=== PATIENT | female | born 1950 | race Caucasian/White ===

== ENCOUNTER 2018-10-20 08:43 | Inpatient (IN) | payer MEDICARE, BC ==
[2018-10-17 11:26] LABS: BASOPHILS # (AUTO) 0.1 (0.0-0.1); BASOPHILS % 0.8 % (0.0-1.0); EOSINOPHILS # (AUTO) 0.2 (0.0-0.4); EOSINOPHILS % 3.4 % (0.0-6.0); HEMATOCRIT 39.9 % (34.2-44.1); HEMOGLOBIN 13.5 g/dL (12.0-16.0); LYMPHOCYTES # (AUTO) 1.2 (1.0-3.2); MEAN CORPUSCULAR HEMOGLOBIN 32.1 pg (28-32); MEAN CORPUSCULAR HGB CONC 33.8 g/dL (31-35); MEAN CORPUSCULAR VOLUME 94.8 fL (81-99); MONOCYTES # (AUTO) 0.7 (0.2-0.8); MONOCYTES % 9.2 % (4.4-11.3); NEUTROPHILS % 69.2 % (38.7-80.0); PLATELET COUNT 254 x10e3/uL (140-360); RED BLOOD COUNT 4.21 x10e6/uL (3.6-5.1)
--- NOTE | 2018-10-17 11:33 | Diagnostic Imaging Report ---
EXAMINATION: PA and lateral views of the chest. COMPARISON: None CLINICAL HISTORY: Preoperative evaluation, gastric surgery DISCUSSION: Lines/tubes: None. Lungs: The lungs are well inflated and clear. No pneumonia or pulmonary edema. Pleura: No pleural effusion or pneumothorax. Heart and mediastinum: The cardiomediastinal silhouette is normal. Bones and soft tissues: No acute bony abnormalities. IMPRESSION: No acute cardiopulmonary abnormalities. Signed by: Dr. Bao Goetz M.D. on 10/17/2018 11:30 AM
[~2018-10-20] VITALS: Ht 160 cm; Wt 120.7 kg
[~2018-10-20 08:43] MED LIST: ACETAMINOPHEN PO; AMLODIPINE-BEN1 EAC3; ATORVASTATIN CA10 MG PO; BENADRYL PO; BUPIVACAINE 0.25% 30ML SDV INJ ONE; CINNAMON PO; FISH-FLAX-BORA1 EACH; HYDROGEN PEROXIDE 120 ML BTL ONE; LEVOTHYROXINE25 MCG; TYLENOL COLD & FLU PO; TYLENOL PO; VITAMIN D31000 UNI1 PO
--- OUTSIDE RECORDS SUMMARY | 2018-10-20 08:46 | XMS REPORT | Summary of Care ---
Author Author [facility] Organization [facility] Address Unknown Phone Unavailable Encounter HQ Marialuisa(OLEKSANDR) [id number] Date(s): 04/02/17 - 04/02/17 [facility] [address] [place] [address]- [phone] Discharge Disposition: Home or Self Care Attending Physician: Chica Arias MD Referring Physician: Chica Arias MD Vital Signs 1 2 3 Most recent to oldest [Reference Range]: 160.02 cm (03/29/17 1:59 PM) Height 98.4 DegF (03/29/17 2:04 PM) Temperature Oral [96.4-99.1 DegF] 146/64 mmHg *HI* (04/02/17 1:00 PM) 115/47 mmHg (04/02/17 12:00 PM) 134/60 mmHg (04/02/17 11:45 AM) Blood Pressure [90-140/60-90 mmHg] 14 BRMIN (04/02/17 1:00 PM) 13 BRMIN *LOW* (04/02/17 12:00 PM) 16 BRMIN (04/02/17 11:45 AM) Respiratory Rate [14-20 BRMIN] 77 bpm (03/29/17 2:04 PM) Peripheral Pulse Rate [60-100 bpm] 121.682 kg (03/29/17 1:59 PM) Weight 47.52 m2 (03/29/17 1:59 PM) Body Mass Index Problem List Condition Effective Dates Status Health Status Informant Abnormal vaginal Active bleeding(Confirmed) Hypothyroid(Confirme Active d) Arthritis(Confirmed) Active 1 Aural vertigo, Active left(Confirmed) 1left knee Allergies, Adverse Reactions, Alerts Substance Reaction Severity Status codeine Active penicillins Active Medications acetaminophen (ANES) Route: IV, Drug form: INJ, ONCE, Stop date: 04/02/17 10:30:00 CDT Start Date: 04/02/17 Stop Date: 04/02/17 Status: Completed albuterol (ANES) Route: IV, Drug form: AERO/A, ONCE, Stop date: 04/02/17 11:02:00 CDT Start Date: 04/02/17 Stop Date: 04/02/17 Status: Completed amLODIPine 10 mg oral tablet 10 mg=1 tab, PO, Daily, # 30 tab, 0 Refill(s) Start Date: 03/29/17 Status: Ordered atorvastatin 20 mg oral tablet 20 mg=1 tab, PO, Bedtime, # 30 tab, 0 Refill(s) Start Date: 03/29/17 Status: Ordered ceFAZolin (ANES) Route: IV, Drug form: INJ, ONCE, Stop date: 04/02/17 10:40:00 CDT Start Date: 04/02/17 Stop Date: 04/02/17 Status: Completed dexamethasone (ANES) Route: IV, Drug form: INJ, ONCE, Stop date: 04/02/17 10:35:00 CDT Start Date: 04/02/17 Stop Date: 04/02/17 Status: Completed dimenhyDRINATE 50 mg oral tablet 150 mg=3 tab, PO, Bedtime, 0 Refill(s) Start Date: 03/29/17 Status: Ordered fentaNYL (ANES) Route: IV, Drug form: INJ, ONCE, Stop date: 04/02/17 10:20:00 CDT Start Date: 04/02/17 Stop Date: 04/02/17 Status: Completed glycopyrrolate (ANES) Route: IV, Drug form: INJ, ONCE, Stop date: 04/02/17 11:02:00 CDT Start Date: 04/02/17 Stop Date: 04/02/17 Status: Completed hydromorphone 0.3 mg, Route: IVP, Q4H, Dosing Weight 121.682, kg, PRN Pain Score 7-10, Start d ate: 04/02/17 11:02:00 CDT, Duration: 30 day, Stop date: 05/02/17 11:01:00 CDT Start Date: 04/02/17 Stop Date: 04/02/17 Status: Discontinued hydromorphone (ANES) Route: IV, Drug form: INJ, ONCE, Stop date: 04/02/17 11:02:00 CDT Start Date: 04/02/17 Stop Date: 04/02/17 Status: Completed ketOROLAC (ANES) IV, ONCE Start Date: 04/02/17 Stop Date: 04/02/17 Status: Completed Lactated Ringers Injection IV 1000 mL 1,000 mL, Rate: 40 ml/hr, Infuse over: 25 hr, Route: IV, Dosing Weight 121.682 k g, Total Volume: 1,000, Start date: 04/02/17 9:55:00 CDT, Duration: 30 day, Stop date: 05/02/17 9:54:00 CDT Start Date: 04/02/17 Stop Date: 04/02/17 Status: Discontinued levothyroxine PO, Daily, 0 Refill(s) Start Date: 03/29/17 Status: Ordered lidocaine (ANES) Route: IV, Drug form: INJ, ONCE, Stop date: 04/02/17 10:20:00 CDT Start Date: 04/02/17 Stop Date: 04/02/17 Status: Completed LR 1000 mL INJ (ANES) Route: IV, Total Volume: 1,000, Start date: 04/02/17 9:35:00 CDT, Stop date: 10:35:00 CDT Start Date: 04/02/17 Stop Date: 04/02/17 Status: Completed midazolam (ANES) Route: IV, Drug form: SOLN, ONCE, Stop date: 04/02/17 10:20:00 CDT Start Date: 04/02/17 Stop Date: 04/02/17 Status: Completed neostigmine (ANES) Route: IV, Drug form: INJ, ONCE, Stop date: 04/02/17 11:02:00 CDT Start Date: 04/02/17 Stop Date: 04/02/17 Status: Completed ondansetron (ANES) Route: IV, Drug form: INJ, ONCE, Stop date: 04/02/17 10:35:00 CDT Start Date: 04/02/17 Stop Date: 04/02/17 Status: Completed propofol (ANES) Route: IV, Drug form: INJ, ONCE, Stop date: 04/02/17 10:20:00 CDT Start Date: 04/02/17 Stop Date: 04/02/17 Status: Completed Reglan 10 mg, Route: IVP, ONCE, Dosing Weight 121.682, kg, Start date: 04/02/17 11:59:0 0 CDT, Stop date: 04/02/17 11:59:00 CDT Start Date: 04/02/17 Stop Date: 04/02/17 Status: Completed rocuronium (ANES) Route: IV, Drug form: INJ, ONCE, Stop date: 04/02/17 10:20:00 CDT Start Date: 04/02/17 Stop Date: 04/02/17 Status: Completed tramadol 50 mg, Route: PO, Drug form: TAB, Q6Hnow, Dosing Weight 121.682, kg, Start date: 04/02/17 12:00:00 CDT, Duration: 30 day, Stop date: 05/02/17 6:00:00 CDT Start Date: 04/02/17 Stop Date: 04/02/17 Status: Discontinued tramadol 50 mg oral tablet 50 mg=1 tab, PO, BID, X 15 day, # 30 tab, 0 Refill(s) Start Date: 04/02/17 Stop Date: 04/17/17 Status: Ordered Zofran 4 mg, Route: IVP, Drug form: INJ, ONCE, Dosing Weight 121.682, kg, Start date: 0 04/02/17 12:32:00 CDT, Stop date: 04/02/17 12:32:00 CDT Start Date: 04/02/17 Stop Date: 04/02/17 Status: Completed Results BLOOD BANK RESULTS Most recent to 1 oldest [Reference Range]: ABO/Rh O POS *Unknown* (03/29/17 1:36 PM) Antibody Scrn Negative (03/29/17 1:36 PM) HEMATOLOGY Most recent to 1 oldest [Reference Range]: WBC [3.7-10.4 K/CMM] 7.2 K/CMM (03/29/17 1:36 PM) RBC [4.20-5.40 4.22 M/CMM M/CMM] (03/29/17 1:36 PM) Hgb [12.0-16.0 g/dL] 13.5 g/dL (03/29/17 1:36 PM) Hct [36.0-48.0 %] 40.7 % (03/29/17 1:36 PM) MCV [80.0-98.0 fL] 96.4 fL (03/29/17 1:36 PM) MCH [27.0-31.0 pg] 32.1 pg *HI* (03/29/17 1:36 PM) MCHC [32.0-36.0 33.3 g/dL g/dL] (03/29/17 1:36 PM) RDW [11.5-14.5 %] 13.4 % (03/29/17 1:36 PM) Platelet [133-450 282 K/CMM K/CMM] (03/29/17 1:36 PM) MPV [7.4-10.4 fL] 8.5 fL (03/29/17 1:36 PM) Segs [45.0-75.0 %] 66.4 % (03/29/17 1:36 PM) Lymphocytes 20.3 % [20.0-40.0 %] (03/29/17 1:36 PM) Monocytes [2.0-12.0 8.6 % %] (03/29/17 1:36 PM) Eosinophils [0.0-4.0 3.7 % %] (03/29/17 1:36 PM) Basophils [0.0-1.0 1.0 % %] (03/29/17 1:36 PM) Segs-Bands # 4.7 K/CMM [1.5-8.1 K/CMM] (03/29/17 1:36 PM) Lymphocytes # 1.5 K/CMM [1.0-5.5 K/CMM] (03/29/17 1:36 PM) Monocytes # [0.0-0.8 0.6 K/CMM K/CMM] (03/29/17 1:36 PM) Eosinophils # 0.3 K/CMM [0.0-0.5 K/CMM] (03/29/17 1:36 PM) Basophils # [0.0-0.2 0.1 K/CMM K/CMM] (03/29/17 1:36 PM) Immunizations No data available for this section Procedures Procedure Date Related Diagnosis Body Site Arthrotomy of knee CEIOL - Cataract extraction and insertion of intraocular lens Social History Social History Type Response Smoking Status Never smoker; Exposure to Tobacco Smoke None; Cigarette Smoking Last 365 Days No; Reg Smoking Cessation Counseling No Assessment and Plan No data available for this section
--- OUTSIDE RECORDS SUMMARY | 2018-10-20 08:46 | XMS REPORT | Summary of Care ---
Author Author [facility] [place] Organization [facility] [place] Address Unknown Phone Unavailable Care Team Providers Care Regulatory Affairs Analyst Name Role Phone Sheila Butler PCP Unavailable Encounter HQ Encntr_alias(FIN) [id number] Date(s): 04/15/15 - 04/15/15 [facility] Outpatient Imaging [facility] [address] [place], [place] [address] [phone] Discharge Disposition: Home Attending Physician: Nicole Cespedes MD Vital Signs No data available for this section Problem List No data available for this section Allergies, Adverse Reactions, Alerts No data available for this section Medications No data available for this section Results No data available for this section Immunizations No data available for this section Procedures No data available for this section Social History No data available for this section Assessment and Plan No data available for this section
--- OUTSIDE RECORDS SUMMARY | 2018-10-20 08:46 | XMS REPORT ---
[facility] Address Unknown Phone Unavailable Care Team Providers Care Blacktop Paver Operator Name Role Phone Norma PHILLIPS Unavailable Unavailable Problems This patient has no known problems. Allergies, Adverse Reactions, Alerts This patient has no known allergies or adverse reactions. Medications This patient has no known medications. Results Test Description Test Time Test Comments Text Results Atomic Results Result Comments CHEST 2 VIEWS 2018-10-17 11:29:00 [place] [address] Patient Name: RAMIERZ PALACIO MR #: [id number] : 1950 Age/Sex: 68/F Req #: [id number] Adm Physician: Ordered by: ADRY PHILLIPS MD Report #: [id number] Location: OR Room/Bed: Procedure: [id number] DX/CHEST 2 VIEWS Exam Date: Exam Time: REPORT STATUS: Signed EXAMINATION: PA and lateral views of the chest. COMPARISON: None CLINICAL HISTORY: Preoperative evaluation, gastric surgery DISCUSSION: Lines/tubes: None. Lungs: The lungs are well inflated and clear. No pneumonia or pulmonary edema. Pleura: No pleural effusion or pneumothorax. Heart and mediastinum: The cardiomediastinal silhouette is normal. Bones and soft tissues: No acute bony abnormalities. IMPRESSION: No acute cardiopulmonary abnormalities. Signed by: Dr. Milad Ramirez M.D. on 10/17/2018 11:30 AM Dictated By: MILAD RAMIREZ MD [id number] Transcribed By: IRMA on 10/17/18 1130 COPY TO: ADRY PHILLIPS MD
--- OUTSIDE RECORDS SUMMARY | 2018-10-20 08:46 | XMS REPORT | Summary of Care ---
Author Author [facility] Organization [facility] Address Unknown Phone Unavailable Encounter HQ Sarah_blessing(FIN) [id number] Date(s): 04/07/18 - 04/07/18 [facility] [address] [place] [address]- [phone] Attending Physician: Rasheed eTjada MD Referring Physician: Rodrigo Tovar MD Vital Signs No data available for this section Problem List Condition Effective Dates Status Health Status Informant Abnormal vaginal Active bleeding(Confirmed) Constipation(Confirm Active ed) High Resolved cholesterol(Confirme d) HTN Active (hypertension)(Confi rmed) Hypothyroid(Confirme Active d) Arthritis(Confirmed) Active 1 Endometrial Active cancer(Confirmed) Aural vertigo, Active left(Confirmed) Obesity(Confirmed) Active 1left knee Allergies, Adverse Reactions, Alerts Substance Reaction Severity Status penicillins Active codeine Active Medications No data available for this section Results No data available for this section Immunizations Not Given Vaccine Date Status Refusal Reason pneumococcal 13-valent vaccine 05/25/17 Not Given Patient Refuses Procedures Procedure Date Related Diagnosis Body Site Status Arthrotomy of knee Completed CEIOL - Cataract extraction and insertion of Completed intraocular lens Dilatation and curettage Completed Hysterectomy1 Completed PT STATED HAVING COMPLETE HYSTERECTOMY Social History Social History Type Response Alcohol Never Smoking Status Never smoker; Exposure to Tobacco Smoke None; Cigarette Smoking Last 365 Days No; Reg Smoking Cessation Counseling No entered on: 08/28/17 Assessment and Plan No data available for this section
--- OUTSIDE RECORDS SUMMARY | 2018-10-20 08:46 | XMS REPORT | Summary of Care ---
Author Author SHELLIE ALEJANDRA M.D. Organization Unknown Address [facility] Phone Unavailable Care Team Providers Care Forming Machine Adjuster Name Role Phone SHELLIE ALEJANDRA M.D. Unavailable Unavailable SHELLIE ALEJANDRA MD Unavailable Unavailable Unavailable Unavailable Functional Status Name Dates Details Functional status health issues are not documented Status: Name Dates Details Cognitive status health issues are not documented Status: Problems Name Dates Details Endometrial cancer (182.0, C54.1) Status: Active Fatty liver (571.8, K76.0) Status: Active Diabetes (250.00, E11.9) Status: Active Hernia, abdominal (553.9, K46.9) Status: Active Preoperative clearance (V72.84, Z01.818) Status: Active Morbid obesity (278.01, E66.01) Status: Active Hypothyroidism, unspecified type (244.9, E03.9) Status: Active Hypertriglyceridemia (272.1, E78.1) Status: Active Hyperthyroidism (242.90, E05.90) Status: Active Hypertension, unspecified type (401.9, I10) Status: Active Encounter for follow-up surveillance of endometrial cancer (V67.9, Z08) Status: Active Medications Name Dates Details Atorvastatin Calcium 10 MG Oral Tablet TAKE 1 TABLET DAILY Active Levothyroxine Sodium 25 MCG Oral Tablet TAKE 1 TABLET DAILY. * Refills: 0 Active Amlodipine Besy-Benazepril HCl - 10-20 MG Oral Capsule TAKE 1 CAPSULE DAILY. * Refills: 0 Active Green Tea CAPS * Refills: 0 Active Fish Oil CAPS * Refills: 0 Active Flax Seed Oil CAPS * Refills: 0 Active Borage Oil CAPS * Refills: 0 Active Centrum Silver Oral Tablet * Refills: 0 Active Vitamin D3 2000 UNIT Oral Tablet qd * Refills: 0 Active Super B-Complex Oral Tablet TAKE 1 TABLET DAILY. * Refills: 0 * Start : 25-Jul-2018 Active Allergies and Adverse Reactions Name Dates Details codeine (Allergy) Reaction: Nausea Status: Active Penicillins (Allergy) Reaction: Rash Status: Active Past Medical History Name Dates Details Hypothyroidism, unspecified type (244.9, E03.9) Status: Active History of hyperlipidemia (V12.29, Z86.39) Status: Resolved Procedures Procedure Dates Details History of Knee surgery Completed History of Eye surgery Completed History of Hysterectomy Completed Immunization Name Dates Details Immunizations not documented Family History Name Dates Details Family history of hypertension (V17.49, Z82.49) Status: Active Name Dates Details Family history of hypertension (V17.49, Z82.49) Status: Active Family history of cerebrovascular accident (V17.1, Z82.3) Status: Active Social History Name Dates Details - Status: Name Dates Details Never smoker Vital Signs Date Test Result Details No Known Vitals to report Results Date Description Value Details Results not documented Plan of Care Name Dates Details Planned Observations Planned Goals not documented Planned Encounters Appointment; LEONORA VALENTINO M.D. On: 18-Nov-2018 13:40 Interventions Provided Labs/Procedures/Imaging* [[facility]] [place] 125; Done: 01 Sep 2018 Instructions Name Dates Details Instructions not documented Encounters Appointment; SHELLIE ALEJANDRA M.D. Encounter Diagnosis: Problem not documented On: 22-Apr-2017 14:00 Appointment; SHELLIE ALEJANDRA M.D. Encounter Diagnosis: Problem not documented On: 24-May-2017 13:00 Appointment; SHELLIE ALEJANDRA M.D. Encounter Diagnosis: Problem not documented On: 17-Jun-2017 12:20 Appointment; SHELLIE ALEJANDRA M.D. Encounter Diagnosis: Problem not documented On: 22-Jul-2017 11:00 Appointment; FARHEEN COOK M.D. Encounter Diagnosis: Problem not documented On: 26-Jul-2017 9:00 Appointment; SHELLIE ALEJANDRA M.D. Encounter Diagnosis: Problem not documented On: 28-Aug-2017 12:40 Appointment; SHELLIE ALEJANDRA M.D. Encounter Diagnosis: Problem not documented On: 21-Oct-2017 11:20 Appointment; SHELLIE ALEJANDRA M.D. Encounter Diagnosis: Problem not documented On: 23-Dec-2017 13:40 Appointment; SHELLIE ALEJANDRA M.D. Encounter Diagnosis: Problem not documented On: 20-Jan-2018 13:40 Appointment; SHELLIE ALEJANDRA M.D. Encounter Diagnosis: Problem not documented On: 10-Mar-2018 11:20 Appointment; GAIL MEDRANO M.D. Encounter Diagnosis: Problem not documented On: 04-Apr-2018 10:00 Appointment; SHELLIE ALEJANDRA M.D. Encounter Diagnosis: Problem not documented On: 02-Jun-2018 11:40 Appointment; LEONORA VALENTINO M.D. Encounter Diagnosis: Problem not documented On: 25-Jul-2018 8:30 Appointment; SE, ECHO Encounter Diagnosis: Problem not documented On: 30-Jul-2018 11:00 Appointment; SE, NUCLEAR Encounter Diagnosis: Problem not documented On: 05-Aug-2018 9:00 Appointment; SE, NUCLEAR Encounter Diagnosis: Problem not documented On: 12-Aug-2018 10:00 Appointment; LEONORA VALENTINO M.D. Encounter Diagnosis: Problem not documented On: 19-Aug-2018 14:10 Appointment; SHELLIE ALEJANDRA M.D. Encounter Diagnosis: Problem not documented On: 01-Sep-2018 12:20
--- OUTSIDE RECORDS SUMMARY | 2018-10-20 08:46 | XMS REPORT | Continuity of Care Document ---
Author Author [facility] Interface Address Unknown Phone Unavailable Problems Problem Status Onset Date Classification Date Reported Comments Source UNK Active 04/18/2018 [facility] Encounter for other administrative examinations 11/12/2017 2018 [facility] FOLLOW UP Active 08/27/2017 [facility] NEW VISIT Active 07/26/2017 [facility] C54.1 Active 09/16/2000 [facility] ENDOMETRIAL CANCER Active 09/16/2000 [facility] Abnormal vaginal bleeding Active Problem 2018 [facility] HTN (<span ID="[id number]">Confirmed</span>) Active Problem 2018 [facility] Hypothyroid Active Problem 2018 [facility] Arthritis<sup>1</sup> Active Problem 2018 left knee [facility] Endometrial cancer Active Problem 2018 [facility] Aural vertigo, left Active Problem 2018 [facility] Obesity Active Problem 2018 [facility] Abnormal vaginal bleeding Active Problem 04/10/2018 [facility] Constipation Active Problem 04/10/2018 [facility] High cholesterol Resolved Problem 04/10/2018 [facility] HTN (<span ID="[id number]">Confirmed</span>) Active Problem 04/10/2018 [facility] Hypothyroid Active Problem 04/10/2018 [facility] Arthritis<sup>1</sup> Active Problem 04/10/2018 left knee [facility] Endometrial cancer Active Problem 04/10/2018 [facility] Aural vertigo, left Active Problem 04/10/2018 [facility] Obesity Active Problem 04/10/2018 [facility] INCOMPLETE UTEROVAGINAL PROLAPSE Active [facility] POSTMENOPAUSAL BLEEDING Active [facility] LEIOMYOMA OF UTERUS, UNSPECIFIED Active [facility] MALIGNANT NEOPLASM OF ENDOMETRIUM Active [facility] Medications Medication Details Route Status Patient Instructions Ordering Provider Order Date Source atorvastatin PO, Daily, 0 Refill(s) Active 07/26/2017 [facility] 0.4 ML Enoxaparin sodium 100 MG/ML Prefilled Syringe [Lovenox] 40 mg, SUB-Q, Daily, X 14 day, # 14 inj, 0 Refill(s), [facility] [id number] [facility] Active 05/25/2017 [facility] tramadol hydrochloride 50 MG Oral Tablet 100 mg=2 tab, PO, Q6H, PRN Pain Score 1-3, # 20 tab, 0 Refill(s) Active 05/25/2017 [facility] gabapentin 300 MG Oral Capsule 300 mg=1 cap, PO, Q8Hnow, # 20 cap, 0 Refill(s), Pharmacy: [facility] ([facility] Active 05/25/2017 [facility] celecoxib 100 mg oral capsule 200 mg=2 cap, PO, [id number], # 30 cap, 0 Refill(s), Pharmacy: [facility] [id number] ([facility] Active 05/25/2017 [facility] amLODIPine 10 mg oral tablet 10 mg=1 tab, PO, Daily, 0 Refill(s) Active 05/25/2017 [facility] acetaminophen 500 mg oral tablet 1,000 mg=2 tab, PO, Q6Hnow, # 100 tab, 0 Refill(s), Pharmacy: [facility] [id number] ([facility] Active 05/25/2017 [facility] Benicar 20 mg, 1 tab, Route: PO, Drug form: TAB, Daily, Start date: 05/25/17 9:00:00 CDT, Duration: 30 day, Stop date: 06/23/17 9:00:00 CDT Inactive 05/25/2017 [facility] amLODIPine 10 mg, 1 tab, Route: PO, Drug form: TAB, Daily, Start date: 05/25/17 9:00:00 CDT, Duration: 30 day, Stop date: 06/23/17 9:00:00 CDTNotes: (Same as: Jeramy) Inactive 05/25/2017 [facility] Streptococcus pneumoniae serotype 1 capsular antigen diphtheria [id number] protein conjugate vaccine / Streptococcus pneumoniae serotype 14 capsular antigen diphtheria [id number] protein conjugate vaccine / Streptococcus pneumoniae serotype 18C capsular antigen d 0.5 mL, Route: IM, Drug Form: INJ, Daily, Start date: 05/25/17 9:00:00 CDT, Duration: 1 doses or times, Stop date: 05/25/17 9:00:00 CDTNotes: Shake well prior to use (Same as: Prevnar 13) Inactive 05/25/2017 [facility] Amlodipine 10 MG / Olmesartan medoxomil 20 MG Oral Tablet 1 tab, Route: PO, Dosing Weight 122.727, kg, Daily, Start date: 05/25/17 9:00:00 CDT, Duration: 30 day, Stop date: 06/23/17 9:00:00 CDT Inactive 05/25/2017 [facility] Thyroxine 25 microgram, 1 tab, Route: PO, Drug form: TAB, Q630AM, Dosing Weight 122.727, kg, Start date: 05/25/17 6:30:00 CDT, Duration: 30 day, Stop date: 06/23/17 6:30:00 CDTNotes: Take 1 hour before or 2 hours after meal; Enteral feeds may interefere with the absorption of this medication. (Same as:Levothroid) Inactive 05/25/2017 [facility] Dimenhydrinate 150 mg, Route: PO, Drug form: SOLN, Bedtime, Dosing Weight 122.727, kg, Start date: 05/24/17 21:00:00 CDT, Duration: 30 day, Stop date: 06/22/17 21:00:00 CDT Inactive 05/25/2017 [facility] heparin 5,000 unit, 1 mL, Route: SUB-Q, Drug form: INJ, Q8H, Dosing Weight 122.727, kg, Start date: 05/24/17 21:00:00 CDT, Duration: 30 day, Stop date: 06/23/17 13:00:00 CDTNotes: porcine heparin No Longer Active 05/25/2017 [facility] Docusate Sodium 50 MG / sennosides, MCC 8.6 MG Oral Tablet 2 tab, Route: PO, Drug Form: TAB, Dosing Weight 122.727, kg, BID, Start date: 05/24/17 17:00:00 CDT, Duration: 30 day, Stop date: 06/23/17 9:00:00 CDTNotes: (Same as Trisha-Vahid) Equiv. to Britney-Colace. No Longer Active 05/24/2017 [facility] Magnesium Oxide 400 mg, 1 tab, Route: PO, Drug form: TAB, BID, Dosing Weight 122.727, kg, Start date: 05/24/17 17:00:00 CDT, Duration: 30 day, Stop date: 06/23/17 9:00:00 CDTNotes: (Same as: Mag-Ox 400) Magnesium ox esteban [id number] elemental magnesium Dose=____mg magnesium oxide (___mg elemental magnesium) No Longer Active 05/24/2017 [facility] Zofran 4 mg, 1 tab, Route: PO, Drug form: TAB, Q8H, Dosing Weight 122.727, kg, Start date: 05/24/17 16:00:00 CDT, Duration: 30 day, Stop date: 06/23/17 12:00:00 CDTNotes: (Same as: Zofran) No Longer Active 05/24/2017 [facility] Simethicone 80 mg, 1 tab, Route: CHEW, Drug form: CHEWTAB, QID, Dosing Weight 122.727, kg, PRN Gas, Start date: 05/24/17 13:12:00 CDT, Duration: 30 day, Stop date: 06/23/17 13:11:00 CDTNotes: (Same as: Mylicon) No Longer Active 05/24/2017 [facility] Calcium Chloride 0.002 MEQ/ML / Glucose 50 MG/ML / Potassium Chloride 0.004 MEQ/ML / Sodium Chloride 0.147 MEQ/ML Injectable Solution 1,000 mL, Rate: 100 ml/hr, Infuse over: 10 hr, Route: IV, Dosing Weight 122.727 kg, Total Volume: 1,000, Start date: 05/24/17 13:12:00 CDT, Duration: 30 day, Stop date: 06/23/17 13:11:00 CDT No Longer Active 05/24/2017 [facility] Phenergan 12.5 mg, 0.5 mL, Route: IVPB, Drug form: INJ, Q6H, Dosing Weight 122.727, kg, PRN Nausea & Vomiting, Start date: 05/24/17 13:12:00 CDT, Duration: 30 day, Stop date: 06/23/17 13:11:00 CDTNotes: Do not give IV push. (Same as: Phenergan) No Longer Active 05/24/2017 [facility] Reglan 10 mg, 2 mL, Route: IVP, Drug form: INJ, Q6H, Dosing Weight 122.727, kg, PRN Nausea & Vomiting, Start date: 05/24/17 13:12:00 CDT, Duration: 30 day, Stop date: 06/23/17 13:11:00 CDTNotes: (Same as: Reglan) No Longer Active 05/24/2017 [facility] neostigmine (ANES) Route: IV, Drug form: INJ, ONCE, Stop date: 05/24/17 13:05:00 CDT Inactive 05/24/2017 [facility] glycopyrrolate (ANES) Route: IV, Drug form: INJ, ONCE, Stop date: 05/24/17 13:05:00 CDT Inactive 05/24/2017 [facility] ondansetron (ANES) Route: IV, Drug form: INJ, ONCE, Stop date: 05/24/17 13:05:00 CDT Inactive 05/24/2017 [facility] Promethazine 6.25 mg, 0.25 mL, Route: IVPB, Drug form: INJ, ONCE, Dosing Weight 122.727, kg, PRN Nausea & Vomiting, Start date: 05/24/17 12:58:00 CDTNotes: Do not give IV push. (Same as: Phenergan) Inactive 05/24/2017 [facility] Meperidine 12.5 mg, 0.25 mL, Route: IVP, Drug form: INJ, Q30Min, Dosing Weight 122.727, kg, PRN Other -See Comment, For shivering, Start date: 05/24/17 12:58:00 CDT, Duration: 2 doses or times, Stop date: Limited # of timesNotes: (Same as: Demerol) "Use Precaution in Elderly, Seizure disorders, and Renal impairment" Inactive 05/24/2017 [facility] ANES Enalaprilat 0.625 mg, 0.5 mL, Route: IVP, Drug form: INJ, Q5Min, Dosing Weight 122.727, kg, PRN Elevated BP, Start date: 05/24/17 12:58:00 CDT, Duration: 4 doses or times, Stop date: Limited # of timesNotes: (Same as: Vasotec-IV) Inactive 05/24/2017 [facility] Naloxone 0.4 mg, 1 mL, Route: IVP, Drug form: INJ, Q2MIN, Dosing Weight 122.727, kg, PRN Narcotic Reversal, Start date: 05/24/17 12:58:00 CDT, Duration: 8 doses or times, Stop date: Limited # of timesNotes: Same as Narcan Inactive 05/24/2017 [facility] Flumazenil 0.2 mg, 2 mL, Route: IVP, Drug form: INJ, PRN, Dosing Weight 122.727, kg, PRN Benzodiazepine Reversal, Initial dose, Start date: 05/24/17 12:58:00 CDT, Duration: 1 day, Stop date: 05/25/17 12:57:00 C DTNotes: (Same as: Romazicon) Inactive 05/24/2017 [facility] Labetalol 10 mg, 2 mL, Route: IVP, Drug form: INJ, Q5Min, Dosing Weight 122.727, kg, PRN Elevated BP, Start date: 05/24/17 12:58:00 CDT, Duration: 5 doses or times, Stop date: Limited # of times Inactive 05/24/2017 [facility] Oxycodone 5 mg, 1 tab, Route: PO, Drug form: TAB, Q4H, Dosing Weight 122.727, kg, PRN Pain Score 4-6, Start date: 05/24/17 12:58:00 CDT, Duration: 30 day, Stop date: 06/23/17 12:57:00 CDTNotes: (Same as: Roxic odone) Inactive 05/24/2017 [facility] Fentanyl 50 microgram, 1 mL, Route: IVP, Drug form: INJ, Q5Min, Dosing Weight 122.727, kg, PRN Pain Score 7-10, Priority: Routine, Start date: 05/24/17 12:58:00 CDT, Duration: 2 doses or times, Stop date: Limited # of timesNotes: (Same as: Sublimaze) Preservative free. Inactive 05/24/2017 [facility] propofol (ANES) (ANES) Route: IV, Drug form: INJ, Start date: 05/24/17 11:34:00 CDT, Stop date: 05/24/17 12:34:00 CDT Inactive 05/24/2017 [facility] acetaminophen (ANES) Route: IV, Drug form: INJ, ONCE, Stop date: 05/24/17 9:25:00 CDT Inactive 05/24/2017 [facility] Celebrex 200 mg, Route: PO, Drug form: CAP, BID, Dosing Weight 122.727, kg, Start date: 05/24/17 9:00:00 CDT, Duration: 30 day, Stop date: 06/22/17 17:00:00 CDT Inactive 05/24/2017 [facility] celecoxib 200 mg, 2 cap, Route: PO, Drug form: CAP, [id number], Dosing Weight 122.727, kg, Start date: 05/24/17 9:00:00 CDT, Duration: 30 day, Stop date: 06/22/17 21:00:00 CDTNotes: NSAID. Please check indication. Not for seizure. (Same As: CeleBREX ) No Longer Active 05/24/2017 [facility] Acetaminophen 1,000 mg, 2 tab, Route: PO, Drug form: TAB, Q6Hnow, Dosing Weight 122.727, kg, Start date: 05/24/17 9:00:00 CDT, Duration: 30 day, Stop date: 06/23/17 3:00:00 CDTNotes: Max acetaminophen 4000 mg/day (4 gm/day). (Same as: Tylenol Extra Strength) No Longer Active 05/24/2017 [facility] gabapentin 300 mg, 1 cap, Route: PO, Drug form: CAP, Q8Hnow, Dosing Weight 122.727, kg, Start date: 05/24/17 9:00:00 CDT, Duration: 30 day, Stop date: 06/23/17 1:00:00 CDTNotes: (Same as: Neurontin) No Longer Active 05/24/2017 [facility] heparin 5,000 unit, 1 mL, Route: SUB-Q, Drug form: INJ, Q8H, Dosing Weight 122.727, kg, Start date: 05/24/17 9:00:00 CDT, Duration: 30 day, Stop date: 06/23/17 8:00:00 CDTNotes: porcine heparin Inactive 05/24/2017 [facility] ketAMINE (ANES) Route: IV, Drug form: INJ, ONCE, Stop date: 05/24/17 8:50:00 CDT Inactive 05/24/2017 [facility] ciprofloxacin (ANES) Route: IV, Drug form: INJ, ONCE, Stop date: 05/24/17 8:40:00 CDT Inactive 05/24/2017 [facility] rocuronium (ANES) Route: IV, Drug form: INJ, ONCE, Stop date: 05/24/17 8:40:00 CDT Inactive 05/24/2017 [facility] metroNIDAZOLE (ANES) Route: IV, Drug form: INJ, ONCE, Stop date: 05/24/17 8:40:00 CDT Inactive 05/24/2017 [facility] fentaNYL (ANES) Route: IV, Drug form: INJ, ONCE, Stop date: 05/24/17 8:40:00 CDT Inactive 05/24/2017 [facility] dexamethasone (ANES) Route: IV, Drug form: INJ, ONCE, Stop date: 05/24/17 8:40:00 CDT Inactive 05/24/2017 [facility] propofol (ANES) Route: IV, Drug form: INJ, ONCE, Stop date: 05/24/17 8:40:00 CDT Inactive 05/24/2017 [facility] midazolam (ANES) Route: IV, Drug form: SOLN, ONCE, Stop date: 05/24/17 8:40:00 CDT Inactive 05/24/2017 [facility] lidocaine (ANES) Route: IV, Drug form: INJ, ONCE, Stop date: 05/24/17 8:40:00 CDT Inactive 05/24/2017 [facility] Simethicone 80 mg, 1 tab, Route: PO, Drug form: CHEWTAB, QID-After Meals, Dosing Weight 122.727, kg, PRN Gas, Start date: 05/24/17 8:04:00 CDT, Duration: 30 day, Stop date: 06/23/17 8:03:00 CDTNotes: (Same as: M ylicon) Inactive 05/24/2017 [facility] Ondansetron 4 mg, 2 mL, Route: IVP, Drug form: INJ, Q8H, Dosing Weight 122.727, kg, PRN Nausea & Vomiting, Start date: 05/24/17 8:04:00 CDT, Duration: 30 day, Stop date: 06/23/17 8:03:00 CDTNotes: (Same as: Zofran) MEDICATION WASTE Product Size: 4 mg Product Wasted: ___ mg No Longer Active 05/24/2017 [facility] Tramadol 100 mg, 2 tab, Route: PO, Drug form: TAB, Q6H, Dosing Weight 122.727, kg, PRN Pain Score 1-3, Start date: 05/24/17 8:04:00 CDT, Duration: 30 day, Stop date: 06/23/17 8:03:00 CDTNotes: Not to exceed 4 00mg/day. (Same As: Ultram) No Longer Active 05/24/2017 [facility] Promethazine 12.5 mg, 0.5 mL, Route: IVPB, Drug form: INJ, Q6H, Dosing Weight 122.727, kg, PRN Nausea, Start date: 05/24/17 8:03:00 CDT, Duration: 30 day, Stop date: 06/23/17 8:02:00 CDTNotes: Do not give IV push. (Same as: Phenergan) Inactive 05/24/2017 [facility] Metoclopramide 10 mg, 2 mL, Route: IV, Drug form: INJ, Q6H, Dosing Weight 122.727, kg, PRN Nausea, Start date: 05/24/17 8:01:00 CDT, Duration: 30 day, Stop date: 06/23/17 8:00:00 CDTNotes: (Same as: Reglan) No Longer Active 05/24/2017 [facility] dexmedetomidine (ANES) (ANES) Route: IV, Drug form: INJ, Start date: 05/24/17 7:55:00 CDT, Stop date: 05/24/17 8:55:00 CDT Inactive 05/24/2017 [facility] LR 1000 mL INJ (ANES) Route: IV, Total Volume: 1,000, Start date: 05/24/17 7:24:00 CDT, Stop date: 05/24/17 8:24:00 CDT Inactive 05/24/2017 [facility] melatonin 3 mg oral tablet 3 mg=1 tab, PO, Bedtime, PRN for insomnia, # 60 tab, 0 Refill(s) Active 05/24/2017 [facility] Flagyl 500 mg, 100 mL, Route: IVPB, Drug form: INJ, ONCE, Dosing Weight 122.727, kg, Start date: 05/23/17 21:21:00 CDT, Stop date: 05/23/17 21:21:00 CDT, ABX Indication: Surgical ProphylaxisNotes: (Same as: Flagyl) Avoid alcohol. No Longer Active 05/24/2017 [facility] gabapentin 300 MG Oral Capsule 300 mg, Route: PO, Drug form: CAP, ONCE, Dosing Weight 122.727, kg, Start date: 05/23/17 21:15:00 CDT, Stop date: 05/23/17 21:15:00 CDT No Longer Active 05/24/2017 [facility] Cipro 400 mg, 200 mL, Route: IVPB, Drug form: INJ, ONCE, Dosing Weight 122.727, kg, Start date: 05/23/17 21:15:00 CDT, Stop date: 05/23/17 21:15:00 CDT, ABX Indication: Surgical ProphylaxisNotes: Do not re frigerate No Longer Active 05/24/2017 [facility] 72 HR Scopolamine 0.0139 MG/HR Transdermal Patch 1 patch, Route: TOP, Drug Form: ERFILM, Dosing Weight 122.727, kg, ONCE, Start date: 05/23/17 21:15:00 CDT, Stop date: 05/23/17 21:15:00 CDT No Longer Active 05/24/2017 [facility] Acetaminophen 500 MG Oral Tablet [Tylenol] 500 mg=1 tab, PO, Q4H, PRN Pain, # 60 tab, 0 Refill(s) Active 05/17/2017 [facility] levothyroxine 25 mcg (0.025 mg) oral tablet 25 microgram=1 tab, PO, Daily, # 30 tab, 0 Refill(s) Active 05/17/2017 [facility] Amlodipine 10 MG / Benazepril hydrochloride 20 MG Oral Capsule 1 cap, PO, Daily, # 30 cap, 0 Refill(s) Active 05/17/2017 [facility] Zofran 4 mg, Route: IVP, Drug form: INJ, ONCE, Dosing Weight 121.682, kg, Start date: 04/02/17 12:32:00 CDT, Stop date: 04/02/17 12:32:00 CDT Inactive 04/02/2017 [facility] Tramadol 50 mg, Route: PO, Drug form: TAB, Q6Hnow, Dosing Weight 121.682, kg, Start date: 04/02/17 12:00:00 CDT, Duration: 30 day, Stop date: 05/02/17 6:00:00 CDT Inactive 04/02/2017 [facility] Reglan 10 mg, Route: IVP, ONCE, Dosing Weight 121.682, kg, Start date: 04/02/17 11:59:00 CDT, Stop date: 04/02/17 11:59:00 CDT Inactive 04/02/2017 [facility] tramadol hydrochloride 50 MG Oral Tablet 50 mg=1 tab, PO, BID, X 15 day, # 30 tab, 0 Refill(s) Active 04/02/2017 [facility] Hydromorphone 0.3 mg, Route: IVP, Q4H, Dosing Weight 121.682, kg, PRN Pain Score 7-10, Start date: 04/02/17 11:02:00 CDT, Duration: 30 day, Stop date: 05/02/17 11:01:00 CDT Inactive 04/02/2017 [facility] neostigmine (ANES) Route: IV, Drug form: INJ, ONCE, Stop date: 04/02/17 11:02:00 CDT Inactive 04/02/2017 [facility] albuterol (ANES) Route: IV, Drug form: AERO/A, ONCE, Stop date: 04/02/17 11:02:00 CDT Inactive 04/02/2017 [facility] glycopyrrolate (ANES) Route: IV, Drug form: INJ, ONCE, Stop date: 04/02/17 11:02:00 CDT Inactive 04/02/2017 [facility] ketOROLAC (ANES) IV, ONCE Inactive 04/02/2017 [facility] hydromorphone (ANES) Route: IV, Drug form: INJ, ONCE, Stop date: 04/02/17 11:02:00 CDT Inactive 04/02/2017 [facility] ceFAZolin (ANES) Route: IV, Drug form: INJ, ONCE, Stop date: 04/02/17 10:40:00 CDT Inactive 04/02/2017 [facility] dexamethasone (ANES) Route: IV, Drug form: INJ, ONCE, Stop date: 04/02/17 10:35:00 CDT Inactive 04/02/2017 [facility] ondansetron (ANES) Route: IV, Drug form: INJ, ONCE, Stop date: 04/02/17 10:35:00 CDT Inactive 04/02/2017 [facility] acetaminophen (ANES) Route: IV, Drug form: INJ, ONCE, Stop date: 04/02/17 10:30:00 CDT Inactive 04/02/2017 [facility] rocuronium (ANES) Route: IV, Drug form: INJ, ONCE, Stop date: 04/02/17 10:20:00 CDT Inactive 04/02/2017 [facility] lidocaine (ANES) Route: IV, Drug form: INJ, ONCE, Stop date: 04/02/17 10:20:00 CDT Inactive 04/02/2017 [facility] midazolam (ANES) Route: IV, Drug form: SOLN, ONCE, Stop date: 04/02/17 10:20:00 CDT Inactive 04/02/2017 [facility] propofol (ANES) Route: IV, Drug form: INJ, ONCE, Stop date: 04/02/17 10:20:00 CDT Inactive 04/02/2017 [facility] fentaNYL (ANES) Route: IV, Drug form: INJ, ONCE, Stop date: 04/02/17 10:20:00 CDT Inactive 04/02/2017 [facility] Lactated Ringers Injection IV 1000 mL 1,000 mL, Rate: 40 ml/hr, Infuse over: 25 hr, Route: IV, Dosing Weight 121.682 kg, Total Volume: 1,000, Start date: 04/02/17 9:55:00 CDT, Duration: 30 day, Stop date: 05/02/17 9:54:00 CDT Inactive 04/02/2017 [facility] LR 1000 mL INJ (ANES) Route: IV, Total Volume: 1,000, Start date: 04/02/17 9:35:00 CDT, Stop date: 04/02/17 10:35:00 CDT Inactive 04/02/2017 [facility] dimenhyDRINATE 50 mg oral tablet 150 mg=3 tab, PO, Bedtime, 0 Refill(s) Active 03/29/2017 [facility] Thyroxine PO, Daily, 0 Refill(s) Active 03/29/2017 [facility] atorvastatin 20 mg oral tablet 20 mg=1 tab, PO, Bedtime, # 30 tab, 0 Refill(s) Active 03/29/2017 [facility] amLODIPine 10 mg oral tablet 10 mg=1 tab, PO, Daily, # 30 tab, 0 Refill(s) Active 03/29/2017 [facility] Allergies, Adverse Reactions, Alerts Substance Category Reaction Severity Reaction type Status Date Reported Comments Source codeine Assertion Drug allergy Active [facility] penicillins Assertion Drug allergy Active [facility] Immunizations Immunization Date Given Site Status Last Updated Comments Source pneumococcal 13-valent vaccine 05/25/2017 Not Given [facility] pneumococcal 13-valent vaccine 05/25/2017 Not Given [facility] Results Order Name Results Value Reference Range Date Interpretation Comments Source ELECTROLYTES AGAP 19.3 meq/L 10.0 - 20.0 05/25/2017 [facility] ELECTROLYTES CO2 20 meq/L 24 - 32 05/25/2017 [facility] ELECTROLYTES Potassium Lvl 4.3 meq/L 3.5 - 5.1 05/25/2017 [facility] ELECTROLYTES eGFR 41 mL/min/1.73m2 05/25/2017 Result Comment: The eGFR is calculated using the CKD-EPI formula. In most young, healthy individuals the eGFR will be >90 mL/min/1.73m2. The eGFR declines with age. An eGFR of 60-89 may be normal in some populations, particularly the elderly, for whom the CKD-EPI formula has not been extensively validated. Use of the eGFR is not recommended in the following populations: Individuals with unstable creatinine concentrations, including patients and those with serious co-morbid conditions. Patients with extremes in muscle mass or diet. The data above are obtained from the National Kidney Disease Education Program (NKDEP) which additionally recommends that when the eGFR is used in patients with extremes of body mass index for purposes of drug dosing, the eGFR should be multiplied by the estimated BMI. [facility] ELECTROLYTES Calcium Lvl 8.8 mg/dL 8.5 - 10.5 05/25/2017 [facility] ELECTROLYTES Creatinine Lvl 1.32 mg/dL 0.50 - 1.40 05/25/2017 [facility] ELECTROLYTES BUN 22 mg/dL 7 - 22 05/25/2017 [facility] ELECTROLYTES Glucose Lvl 120 mg/dL 70 - 99 05/25/2017 [facility] ELECTROLYTES Chloride Lvl 102 meq/L 95 - 109 05/25/2017 [facility] ELECTROLYTES Sodium Lvl 137 meq/L 135 - 145 05/25/2017 [facility] HEMATOLOGY MPV 8.6 fL 7.4 - 10.4 05/25/2017 [facility] HEMATOLOGY RDW 13.2 % 11.5 - 14.5 05/25/2017 [facility] HEMATOLOGY Platelet 269 K/CMM 133 - 450 05/25/2017 [facility] HEMATOLOGY MCH 32.2 pg 27.0 - 31.0 05/25/2017 [facility] HEMATOLOGY MCHC 34.2 g/dL 32.0 - 36.0 05/25/2017 [facility] HEMATOLOGY MCV 94.3 fL 80.0 - 98.0 05/25/2017 [facility] HEMATOLOGY Hgb 12.4 g/dL 12.0 - 16.0 05/25/2017 [facility] HEMATOLOGY Hct 36.1 % 36.0 - 48.0 05/25/2017 [facility] HEMATOLOGY WBC 14.4 K/CMM 3.7 - 10.4 05/25/2017 [facility] HEMATOLOGY RBC 3.83 M/CMM 4.20 - 5.40 05/25/2017 [facility] HEMATOLOGY Monocytes 6.3 % 2.0 - 12.0 05/25/2017 [facility] HEMATOLOGY Basophils 0.1 % 0.0 - 1.0 05/25/2017 [facility] HEMATOLOGY Lymphocytes 5.8 % 20.0 - 40.0 05/25/2017 [facility] HEMATOLOGY Segs 87.8 % 45.0 - 75.0 05/25/2017 [facility] HEMATOLOGY Lymphocytes # 0.8 K/CMM 1.0 - 5.5 05/25/2017 [facility] HEMATOLOGY Monocytes # 0.9 K/CMM 0.0 - 0.8 05/25/2017 [facility] HEMATOLOGY Segs-Bands # 12.6 K/CMM 1.5 - 8.1 05/25/2017 [facility] BLOOD BANK RESULTS Antibody Scrn Negative (05/24/17 6:48 AM) 05/24/2017 [facility] BLOOD BANK RESULTS ABO/Rh O POS 05/24/2017 [facility] ELECTROLYTES AGAP 12.7 meq/L 10.0 - 20.0 05/17/2017 [facility] ELECTROLYTES eGFR 94 mL/min/1.73m2 05/17/2017 Result Comment: The eGFR is calculated using the CKD-EPI formula. In most young, healthy individuals the eGFR will be >90 mL/min/1.73m2. The eGFR declines with age. An eGFR of 60-89 may be normal in some populations, particularly the elderly, for whom the CKD-EPI formula has not been extensively validated. Use of the eGFR is not recommended in the following populations: Individuals with unstable creatinine concentrations, including patients and those with serious co-morbid conditions. Patients with extremes in muscle mass or diet. The data above are obtained from the National Kidney Disease Education Program (NKDEP) which additionally recommends that when the eGFR is used in patients with extremes of body mass index for purposes of drug dosing, the eGFR should be multiplied by the estimated BMI. [facility] ELECTROLYTES Calcium Lvl 9.6 mg/dL 8.5 - 10.5 05/17/2017 [facility] ELECTROLYTES CO2 28 meq/L 24 - 32 05/17/2017 [facility] ELECTROLYTES Chloride Lvl 105 meq/L 95 - 109 05/17/2017 [facility] ELECTROLYTES Potassium Lvl 3.7 meq/L 3.5 - 5.1 05/17/2017 [facility] ELECTROLYTES BUN 14 mg/dL 7 - 22 05/17/2017 [facility] ELECTROLYTES Glucose Lvl 93 mg/dL 70 - 99 05/17/2017 [facility] ELECTROLYTES Sodium Lvl 142 meq/L 135 - 145 05/17/2017 [facility] ELECTROLYTES Creatinine Lvl 0.61 mg/dL 0.50 - 1.40 05/17/2017 [facility] HEMATOLOGY Platelet 282 K/CMM 133 - 450 05/17/2017 [facility] HEMATOLOGY RDW 13.4 % 11.5 - 14.5 05/17/2017 [facility] HEMATOLOGY MPV 8.6 fL 7.4 - 10.4 05/17/2017 [facility] HEMATOLOGY Hct 39.5 % 36.0 - 48.0 05/17/2017 [facility] HEMATOLOGY Hgb 13.4 g/dL 12.0 - 16.0 05/17/2017 [facility] HEMATOLOGY MCV 95.3 fL 80.0 - 98.0 05/17/2017 [facility] HEMATOLOGY MCH 32.3 pg 27.0 - 31.0 05/17/2017 [facility] HEMATOLOGY MCHC 33.9 g/dL 32.0 - 36.0 05/17/2017 [facility] HEMATOLOGY WBC 7.1 K/CMM 3.7 - 10.4 05/17/2017 [facility] HEMATOLOGY RBC 4.15 M/CMM 4.20 - 5.40 05/17/2017 [facility] HEMATOLOGY Eosinophils # 0.1 K/CMM 0.0 - 0.5 05/17/2017 [facility] HEMATOLOGY Monocytes # 0.5 K/CMM 0.0 - 0.8 05/17/2017 [facility] HEMATOLOGY Basophils # 0.1 K/CMM 0.0 - 0.2 05/17/2017 [facility] HEMATOLOGY Lymphocytes # 1.4 K/CMM 1.0 - 5.5 05/17/2017 [facility] HEMATOLOGY Segs-Bands # 4.9 K/CMM 1.5 - 8.1 05/17/2017 [facility] HEMATOLOGY Segs 69.7 % 45.0 - 75.0 05/17/2017 [facility] HEMATOLOGY Lymphocytes 19.1 % 20.0 - 40.0 05/17/2017 [facility] HEMATOLOGY Monocytes 7.7 % 2.0 - 12.0 05/17/2017 [facility] HEMATOLOGY Basophils 1.9 % 0.0 - 1.0 05/17/2017 [facility] HEMATOLOGY Eosinophils 1.6 % 0.0 - 4.0 05/17/2017 [facility] SPECIAL CHEMISTRY Hgb A1C 5.5 % <=5.6 % 05/17/2017 [facility] BLOOD BANK RESULTS Antibody Scrn Negative (03/29/17 1:36 PM) 03/29/2017 [facility] BLOOD BANK RESULTS ABO/Rh O POS 03/29/2017 [facility] MCHC 33.3 g/dL 32.0 - 36.0 03/29/2017 [facility] WBC 7.2 K/CMM 3.7 - 10.4 03/29/2017 [facility] RBC 4.22 M/CMM 4.20 - 5.40 03/29/2017 [facility] RDW 13.4 % 11.5 - 14.5 03/29/2017 [facility] Platelet 282 K/CMM 133 - 450 03/29/2017 [facility] MPV 8.5 fL 7.4 - 10.4 03/29/2017 [facility] MCV 96.4 fL 80.0 - 98.0 03/29/2017 [facility] Hct 40.7 % 36.0 - 48.0 03/29/2017 [facility] Hgb 13.5 g/dL 12.0 - 16.0 03/29/2017 [facility] MCH 32.1 pg 27.0 - 31.0 03/29/2017 [facility] HEMATOLOGY Segs 66.4 % 45.0 - 75.0 03/29/2017 [facility] Lymphocytes 20.3 % 20.0 - 40.0 03/29/2017 [facility] Segs-Bands # 4.7 K/CMM 1.5 - 8.1 03/29/2017 [facility] Lymphocytes # 1.5 K/CMM 1.0 - 5.5 03/29/2017 [facility] HEMATOLOGY Monocytes # 0.6 K/CMM 0.0 - 0.8 03/29/2017 [facility] Monocytes 8.6 % 2.0 - 12.0 03/29/2017 [facility] HEMATOLOGY Eosinophils 3.7 % 0.0 - 4.0 03/29/2017 [facility] Basophils 1.0 % 0.0 - 1.0 03/29/2017 [facility] HEMATOLOGY Eosinophils # 0.3 K/CMM 0.0 - 0.5 03/29/2017 [facility] HEMATOLOGY Basophils # 0.1 K/CMM 0.0 - 0.2 03/29/2017 [facility] Breast Limited Uni US Breast Limited Uni US - DIGITAL MAMMO DX UNI MA/R - BREAST LIMITED UNI US/R UNILATERAL RIGHT DIGITAL DIAGNOSTIC MAMMOGRAM WITH CAD AND TARGETED RIGHT ULTRASOUND: 05/11/2015 CLINICAL: Callback from screening for right focal asymmetry. Current study was evaluated with a Computer Aided Detection (CAD) system. Comparison is made to exam dated: 04/15/2015 mammogram - [facility]. There are scattered fibroglandular densities in the right breast. Additional evaluation performed for right focal asymmetry. There is benign subareolar duct ectasia without intraductal mass. No significant masses, calcifications, or other findings are seen in the breast on the mammogram or targeted ultrasound. IMPRESSION: BENIGN, TARGETED ULTRASOUND BENIGN There is no mammographic or targeted sonographic evidence of malignancy. A screening mammogram in one year is recommended. SUMMARY: Findings and recommendations were discussed with the patient in person at the time of the exam. Kapil Martinez M.D. srp/:05/11/2015 15:05:01 Wire Spiral Binder: Kalie Foster [facility] This exam was dictated and interpreted by [id number] for Pilar. letter sent: Benign Right Mammogram BI-RADS: 2 Benign Ultrasound BI-RADS: 2 Benign 05/11/2015 - - Read by: Kapil Martinez MD Dictated Date/time: 05/11/15 15:05 Electronically Signed by: Kapil Martinez MD 05/11/15 15:05 FINAL REPORT NIXON Quezada Digital Mammo DX Uni [place] Digital Mammo DX Uni [place] - DIGITAL MAMMO DX UNI MA/R - BREAST LIMITED UNI US/R UNILATERAL RIGHT DIGITAL DIAGNOSTIC MAMMOGRAM WITH CAD AND TARGETED RIGHT ULTRASOUND: 05/11/2015 CLINICAL: Callback from screening for right focal asymmetry. Current study was evaluated with a Computer Aided Detection (CAD) system. Comparison is made to exam dated: 04/15/2015 mammogram - [facility]. There are scattered fibroglandular densities in the right breast. Additional evaluation performed for right focal asymmetry. There is benign subareolar duct ectasia without intraductal mass. No significant masses, calcifications, or other findings are seen in the breast on the mammogram or targeted ultrasound. IMPRESSION: BENIGN, TARGETED ULTRASOUND BENIGN There is no mammographic or targeted sonographic evidence of malignancy. A screening mammogram in one year is recommended. SUMMARY: Findings and recommendations were discussed with the patient in person at the time of the exam. Kapil Martinez M.D. srp/:05/11/2015 15:05:01 Wire Spiral Binder: Kalie Foster, [facility] This exam was dictated and interpreted by [id number] for REJI Quezada. letter sent: Benign Right Mammogram BI-RADS: 2 Benign Ultrasound BI-RADS: 2 Benign 05/11/2015 - - Read by: Kapil Martinez MD Dictated Date/time: 05/11/15 15:05 Electronically Signed by: Kapil Martinez MD 05/11/15 15:05 FINAL REPORT REJI Quezada Digital Mammo Screening [place] Digital Mammo Screening [place] - DIGITAL MAMMO SCREENING [place] BILATERAL DIGITAL SCREENING MAMMOGRAM WITH CAD: 04/15/2015 CLINICAL: V76.10 Breast Screening, Unspecified. Current study was evaluated with a Computer Aided Detection (CAD) system. No prior exams were available for comparison. There are scattered fibroglandular densities in both breasts. There is a focal asymmetry in the right breast central to the nipple in the retroareolar region. No other significant masses, calcifications, or other findings are seen in either breast. IMPRESSION: INCOMPLETE: NEEDS ADDITIONAL IMAGING EVALUATION The focal asymmetry in the right breast is indeterminate. Additional views with possible ultrasound are recommended. SUMMARY: The patient will be contacted by [facility] to return for further imaging. Attempts to contact the patient should also be made by the referring physician in the event that Quirino Tremayne is unsuccessful. Kapil Martinez M.D. srp/penrad:04/15/2015 13:59:02 Wire Spiral Binder: Tami BELLO(R)(M), [facility] This exam was dictated and interpreted by [id number] for REJI Velez. letter sent: Additional Imaging Mammogram BI-RADS: 0 Indeterminate 04/15/2015 - - Read by: Kapil Martinez MD Dictated Date/time: 04/15/15 13:59 Electronically Signed by: Kapil Martinez MD 04/15/15 13:59 FINAL REPORT NIXON Quezada Vital Signs Vital Sign Value Date Comments Source BMI Calculated 48.92 08/28/2017 [facility] Weight 125.273 08/28/2017 [facility] Temperature Oral (F) 97.8 F 08/28/2017 [facility] Height 160.02 cm 08/28/2017 [facility] Systolic (mm Hg) 156 08/28/2017 [facility] Diastolic (mm Hg) 82 08/28/2017 [facility] Heart Rate 84 08/28/2017 [facility] Respitory Rate 18 08/28/2017 [facility] BMI Calculated 48.07 07/26/2017 [facility] Height 160.02 cm 07/26/2017 [facility] Weight 123.091 07/26/2017 [facility] Temperature Oral (F) 97.9 F 07/26/2017 [facility] Respitory Rate 18 07/26/2017 [facility] Heart Rate 90 07/26/2017 [facility] Systolic (mm Hg) 128 07/26/2017 [facility] Diastolic (mm Hg) 80 07/26/2017 [facility] Respitory Rate 20 05/25/2017 [facility] Heart Rate 86 05/25/2017 [facility] Temperature Oral (F) 98.2 F 05/25/2017 [facility] Systolic (mm Hg) 155 05/25/2017 [facility] Diastolic (mm Hg) 75 05/25/2017 [facility] Temperature Oral (F) 98.9 F 05/25/2017 [facility] Systolic (mm Hg) 162 05/25/2017 [facility] Diastolic (mm Hg) 74 05/25/2017 [facility] Respitory Rate 20 05/25/2017 [facility] Heart Rate 99 05/25/2017 [facility] Systolic (mm Hg) 122 05/25/2017 [facility] Diastolic (mm Hg) 72 05/25/2017 [facility] Respitory Rate 20 05/25/2017 [facility] Heart Rate 100 05/25/2017 [facility] Temperature Oral (F) 98.5 F 05/25/2017 [facility] Height 160.02 cm 05/24/2017 [facility] Weight 122.727 05/24/2017 [facility] BMI Calculated 47.93 05/24/2017 [facility] Weight 122.727 05/17/2017 [facility] BMI Calculated 47.93 05/17/2017 [facility] Height 160.02 cm 05/17/2017 [facility] Respitory Rate 14 04/02/2017 [facility] Systolic (mm Hg) 146 04/02/2017 [facility] Diastolic (mm Hg) 64 04/02/2017 [facility] Systolic (mm Hg) 115 04/02/2017 [facility] Diastolic (mm Hg) 47 04/02/2017 [facility] Respitory Rate 13 04/02/2017 [facility] Respitory Rate 16 04/02/2017 [facility] Systolic (mm Hg) 134 04/02/2017 [facility] Diastolic (mm Hg) 60 04/02/2017 [facility] Heart Rate 77 03/29/2017 [facility] Temperature Oral (F) 98.4 F 03/29/2017 [facility] BMI Calculated 47.52 03/29/2017 [facility] Weight 121.682 03/29/2017 [facility] Height 160.02 cm 03/29/2017 [facility] Encounters Location Location Details Encounter Type Encounter Number Reason For Visit Attending Provider ADM Date DC Date Status Source [facility] [id number] Nicole Cespedes 04/15/2015 04/16/2015 [facility] [id number] Nicole Cespedes 05/11/2015 05/12/2015 [facility] Day Surgery [id number] Chica Arias 04/02/2017 04/02/2017 [facility] Observation [id number] Alex Ellison III 05/24/2017 05/25/2017 [facility] Outpatient [id number] William Lomeli 06/20/2017 06/21/2017 [facility] Recurring [id number] William Lomeli 07/03/2017 08/02/2017 [facility] Recurring [id number] Saab 07/26/2017 08/25/2017 [facility] Oncology [facility] Recurring [id number] Alex Ellison III 08/28/2017 09/27/2017 [facility] General Surgery [facility] Ambulatory Pre-Reg [id number] Shuas العلي 04/07/2018 04/07/2018 Medical [facility] General Surgery [facility] Ambulatory Pre-Reg [id number] Suhas العلي 04/07/2018 04/07/2018 Medical [facility] Outpatient [id number] SUHAS العلي 05/05/2018 Active [facility] Outpatient [id number] KENAN LUDMILA 05/16/2018 Active [facility] Procedures Procedure Code Date Perfomer Comments Source Arthrotomy of knee 8227076 [facility] CEIOL - Cataract extraction and insertion of intraocular lens [id number] [facility] Dilatation and curettage [id number] [facility] Arthrotomy of knee 7446643 [facility] CEIOL - Cataract extraction and insertion of intraocular lens [id number] [facility] Dilatation and curettage [id number] [facility] Hysterectomy<sup>1</sup> [id number] 05/2017 PT STATED HAVING COMPLETE HYSTERECTOMY [facility] Hysterectomy<sup>1</sup> [id number] 05/2017 PT STATED HAVING COMPLETE HYSTERECTOMY [facility] Arthrotomy of knee 9484352 [facility] CEIOL - Cataract extraction and insertion of intraocular lens [id number] [facility] Dilatation and curettage [id number] [facility] Hysterectomy<sup>1</sup> [id number] 05/2017 PT STATED HAVING COMPLETE HYSTERECTOMY [facility]
--- OUTSIDE RECORDS SUMMARY | 2018-10-20 08:46 | XMS REPORT | Summary of Care ---
Author Author [facility] Surgery [facility] Organization [facility] General [facility] Address Unknown Phone Unavailable Encounter HQ Sarah_blessing(FIN) [id number] Date(s): 04/07/18 - 04/07/18 [facility] General [facility] [address] [place] [address]- [phone] Attending Physician: Rasheed Tejada MD Referring Physician: Rodrigo Tovar MD Vital [...]
--- OUTSIDE RECORDS SUMMARY | 2018-10-20 08:46 | XMS REPORT | Summary of Care ---
Author Author [facility] Organization [facility] Address Unknown Phone Unavailable Encounter HQ Marialuisa(FIN) [id number] Date(s): 07/03/17 - 08/01/17 [facility] [address] [place] [address]- [phone] Discharge Disposition: Home or Self Care Attending Physician: William Lomeli MD Vital Signs No data available for [...] Cataract extraction and insertion of intraocular lens Dilatation and curettage Hysterectomy1 PT STATED HAVING COMPLETE HYSTERECTOMY Social History Social History Type Response Alcohol Never Smoking Status Never smoker; Exposure to Tobacco Smoke None; Cigarette Smoking Last 365 Days No; Reg Smoking Cessation Counseling No Assessment and Plan No data available for this section
--- OUTSIDE RECORDS SUMMARY | 2018-10-20 08:46 | XMS REPORT | Summary of Care ---
Author Author [facility] [place] Organization [facility] [place] Address Unknown Phone Unavailable Care Team Providers Care Ball Ender Name Role Phone Sheila Butler PCP Unavailable Encounter HQ Encntr_alias(FIN) [id number] Date(s): 05/11/15 - 05/11/15 [facility] Outpatient Imaging [facility] [address] [place] [id number] [phone] Discharge Disposition: Home Attending Physician: Nicole Cespedes [...]
--- OUTSIDE RECORDS SUMMARY | 2018-10-20 08:46 | XMS REPORT | Summary of Care ---
Author Author [facility] Organization [facility] Address Unknown Phone Unavailable Encounter HQ Marialuisa(FIN) [id number] Date(s): 08/28/17 - 09/26/17 [facility] [address] [place], [place] [address] [phone] Encounter Diagnosis Encounter for other administrative examinations (Final) - 11/11/17 Discharge Disposition: Home or Self Care Attending Physician: Alex Hookre MD Referring Physician: Alex Hooker MD Vital Signs Most recent to 1 oldest [Reference Range]: Height 160.02 cm (08/28/17 10:46 AM) Temperature Oral 97.8 DegF [96.4-99.1 DegF] (08/28/17 10:46 AM) Blood Pressure 156/82 mmHg [90-140/60-90 mmHg] *HI* (08/28/17 10:46 AM) Respiratory Rate 18 BRMIN [14-20 BRMIN] (08/28/17 10:46 AM) Peripheral Pulse 84 bpm Rate [60-100 bpm] (08/28/17 10:46 AM) Weight 125.273 kg (08/28/17 10:46 AM) Body Mass Index 48.92 m2 (08/28/17 10:46 AM) Problem List Condition Effective Dates Status Health Status Informant Abnormal vaginal Active bleeding(Confirmed) Constipation(Confirm Active ed) High Resolved cholesterol(Confirme d) HTN Active (hypertension)(Confi rmed) Hypothyroid(Confirme Active d) Arthritis(Confirmed) Active 1 Endometrial Active cancer(Confirmed) Aural vertigo, Active left(Confirmed) Obesity(Confirmed) Active 1left knee Allergies, Adverse Reactions, Alerts Substance Reaction Severity Status penicillins Active codeine Active Medications No Known Medications Results No data available for this section [...]
--- OUTSIDE RECORDS SUMMARY | 2018-10-20 08:46 | XMS REPORT | Summary of Care ---
Author Author [facility] Organization [facility] Address Unknown Phone Unavailable Encounter RUSLAN Elam(OLEKSANDR) [id number] Date(s): 06/20/17 - 06/20/17 [facility] [address] [place] [address]- Discharge Disposition: Home or Self Care Attending Physician: William Lomeli MD Vital Signs No data available for this section Problem List Condition Effective Dates Status Health Status Informant Abnormal vaginal Active bleeding(Confirmed) HTN Active (hypertension)(Confi rmed) Hypothyroid(Confirme Active d) Arthritis(Confirmed) Active 1 Endometrial Active cancer(Confirmed) Aural vertigo, Active left(Confirmed) Obesity(Confirmed) Active 1left knee Allergies, Adverse Reactions, Alerts Substance Reaction Severity Status codeine Active penicillins Active Medications No data available for this section Results No data available for this section Immunizations Not Given Vaccine Date Status Refusal Reason pneumococcal 13-valent vaccine 05/25/17 Not Given Patient Refuses Procedures Procedure Date Related Diagnosis Body Site Arthrotomy of knee CEIOL - Cataract extraction and insertion of intraocular lens Dilatation and curettage Social History Social History Type Response Smoking Status Never smoker; Exposure to Tobacco Smoke None; Cigarette Smoking Last 365 Days No; Reg Smoking Cessation Counseling No Assessment and Plan No data available for this section
--- OUTSIDE RECORDS SUMMARY | 2018-10-20 08:46 | XMS REPORT | Summary of Care ---
Author Author [facility] Organization [facility] Address Unknown Phone Unavailable Encounter RUSLAN Elam(OLEKSANDR) [id number] Date(s): 07/26/17 - 08/24/17 [facility] [address] [place], [place] [address] [phone] Discharge Disposition: Home or Self Care Attending Physician: Marcia Saab MD Referring Physician: Marcia Saab MD Vital Signs Most recent to 1 oldest [Reference Range]: Height 160.02 cm (07/26/17 9:15 AM) Temperature Oral 97.9 DegF [96.4-99.1 DegF] (07/26/17 9:15 AM) Blood Pressure 128/80 mmHg [90-140/60-90 mmHg] (07/26/17 9:15 AM) Respiratory Rate 18 BRMIN [14-20 BRMIN] (07/26/17 9:15 AM) Peripheral Pulse 90 bpm Rate [60-100 bpm] (07/26/17 9:15 AM) Weight 123.091 kg (07/26/17 9:15 AM) Body Mass Index 48.07 m2 (07/26/17 9:15 AM) Problem List Condition Effective Dates Status Health Status Informant Abnormal vaginal Active bleeding(Confirmed) Constipation(Confirm Active ed) High Resolved cholesterol(Confirme d) HTN Active (hypertension)(Confi rmed) Hypothyroid(Confirme Active d) Arthritis(Confirmed) Active 1 Endometrial Active cancer(Confirmed) Aural vertigo, Active left(Confirmed) Obesity(Confirmed) Active 1left knee Allergies, Adverse Reactions, Alerts Substance Reaction Severity Status penicillins Active codeine Active Medications atorvastatin PO, Daily, 0 Refill(s) Start Date: 07/26/17 Status: Ordered Results No data available for this section [...]
--- OUTSIDE RECORDS SUMMARY | 2018-10-20 08:46 | XMS REPORT | Summary of Care ---
Author Author [facility] Organization [facility] Address Unknown Phone Unavailable Encounter HQ Marialuisa(OLEKSANDR) [id number] Date(s): 05/24/17 - 05/25/17 [facility] [address] [employer] provided by [facility] [place] [address]- Discharge Disposition: Home or Self Care Attending Physician: Alex Hooker MD Referring Physician: Alex Hooker MD Vital Signs 1 2 3 Most recent to oldest [Reference Range]: 160.02 cm (05/24/17 6:49 AM) 160.02 cm (05/17/17 3:46 PM) Height 98.2 DegF (05/25/17 11:53 AM) 98.9 DegF (05/25/17 7:48 AM) 98.5 DegF (05/25/17 4:53 AM) Temperature Oral [96.4-99.1 DegF] 155/75 mmHg *HI* (05/25/17 11:53 AM) 162/74 mmHg *HI* (05/25/17 7:48 AM) 122/72 mmHg (05/25/17 4:53 AM) Blood Pressure [90-140/60-90 mmHg] 20 BRMIN (05/25/17 11:53 AM) 20 BRMIN (05/25/17 7:48 AM) 20 BRMIN (05/25/17 4:53 AM) Respiratory Rate [14-20 BRMIN] 86 bpm (05/25/17 11:53 AM) 99 bpm (05/25/17 7:48 AM) 100 bpm (05/25/17 4:53 AM) Peripheral Pulse Rate [60-100 bpm] 122.727 kg (05/24/17 6:49 AM) 122.727 kg (05/17/17 3:46 PM) Weight 47.93 m2 (05/24/17 6:49 AM) 47.93 m2 (05/17/17 3:46 PM) Body Mass Index Problem List Condition Effective Dates Status Health Status Informant Abnormal vaginal Active bleeding(Confirmed) HTN Active (hypertension)(Confi rmed) Hypothyroid(Confirme Active d) Arthritis(Confirmed) Active 1 Endometrial Active cancer(Confirmed) Aural vertigo, Active left(Confirmed) Obesity(Confirmed) Active 1left knee Allergies, Adverse Reactions, Alerts Substance Reaction Severity Status codeine Active penicillins Active Medications acetaminophen 1,000 mg, 2 tab, Route: PO, Drug form: TAB, Q6Hnow, Dosing Weight 122.727, kg, S tart date: 05/24/17 9:00:00 CDT, Duration: 30 day, Stop date: 06/23/17 3:00:00 C DT Notes: Max acetaminophen 4000 mg/day (4 gm/day). (Same as: Tylenol Extra Streng th) Start Date: 05/24/17 Stop Date: 05/25/17 Status: Discontinued acetaminophen (ANES) Route: IV, Drug form: INJ, ONCE, Stop date: 05/24/17 9:25:00 CDT Start Date: 05/24/17 Stop Date: 05/24/17 Status: Completed acetaminophen 500 mg oral tablet 1,000 mg=2 tab, PO, Q6Hnow, # 100 tab, 0 Refill(s), Pharmacy: [address] [facility] Start Date: 05/25/17 Stop Date: 05/26/18 Status: Ordered amLODIPine 10 mg, 1 tab, Route: PO, Drug form: TAB, Daily, Start date: 05/25/17 9:00:00 CDT , Duration: 30 day, Stop date: 06/23/17 9:00:00 CDT Notes: (Same as: Norvasc) Start Date: 05/25/17 Stop Date: 05/25/17 Status: Discontinued amLODIPine 10 mg oral tablet 10 mg=1 tab, PO, Daily, 0 Refill(s) Start Date: 05/25/17 Status: Ordered amLODIPine-benazepril 10 mg-20 mg oral capsule 1 cap, PO, Daily, # 30 cap, 0 Refill(s) Start Date: 05/17/17 Status: Ordered amLODIPine-olmesartan 10 mg-20 mg oral tablet 1 tab, Route: PO, Dosing Weight 122.727, kg, Daily, Start date: 05/25/17 9:00:00 CDT, Duration: 30 day, Stop date: 06/23/17 9:00:00 CDT Start Date: 05/25/17 Stop Date: 05/25/17 Status: Deleted ANES Enalaprilat 0.625 mg, 0.5 mL, Route: IVP, Drug form: INJ, Q5Min, Dosing Weight 122.727, kg, PRN Elevated BP, Start date: 05/24/17 12:58:00 CDT, Duration: 4 doses or times, Stop date: Limited # of times Notes: (Same as: Vasotec-IV) Start Date: 05/24/17 Stop Date: 05/24/17 Status: Discontinued ANES fentaNYL 50 microgram, 1 mL, Route: IVP, Drug form: INJ, Q5Min, Dosing Weight 122.727, kg , PRN Pain Score 7-10, Priority: Routine, Start date: 05/24/17 12:58:00 CDT, Dur ation: 2 doses or times, Stop date: Limited # of times Notes: (Same as: Sublimaze) Preservative free. Start Date: 05/24/17 Stop Date: 05/24/17 Status: Discontinued ANES flumazenil 0.2 mg, 2 mL, Route: IVP, Drug form: INJ, PRN, Dosing Weight 122.727, kg, PRN Be nzodiazepine Reversal, Initial dose, Start date: 05/24/17 12:58:00 CDT, Duration : 1 day, Stop date: 05/25/17 12:57:00 CDT Notes: (Same as: Romazicon) Start Date: 05/24/17 Stop Date: 05/24/17 Status: Discontinued ANES labetalol 10 mg, 2 mL, Route: IVP, Drug form: INJ, Q5Min, Dosing Weight 122.727, kg, PRN E levated BP, Start date: 05/24/17 12:58:00 CDT, Duration: 5 doses or times, Stop date: Limited # of times Start Date: 05/24/17 Stop Date: 05/24/17 Status: Discontinued ANES meperidine 12.5 mg, 0.25 mL, Route: IVP, Drug form: INJ, Q30Min, Dosing Weight 122.727, kg, PRN Other -See Comment, For shivering, Start date: 05/24/17 12:58:00 CDT, Durat ion: 2 doses or times, Stop date: Limited # of times Notes: (Same as: Demerol) "Use Precaution in Elderly, Seizure disorders, and Re nal impairment" Start Date: 05/24/17 Stop Date: 05/24/17 Status: Discontinued ANES naloxone 0.4 mg, 1 mL, Route: IVP, Drug form: INJ, Q2MIN, Dosing Weight 122.727, kg, PRN Narcotic Reversal, Start date: 05/24/17 12:58:00 CDT, Duration: 8 doses or times , Stop date: Limited # of times Notes: Same as Narcan Start Date: 05/24/17 Stop Date: 05/24/17 Status: Discontinued ANES oxyCODONE 5 mg, 1 tab, Route: PO, Drug form: TAB, Q4H, Dosing Weight 122.727, kg, PRN Pain Score 4-6, Start date: 05/24/17 12:58:00 CDT, Duration: 30 day, Stop date: 05/02 12:57:00 CDT Notes: (Same as: Roxicodone) Start Date: 05/24/17 Stop Date: 05/24/17 Status: Discontinued ANES promethazine 6.25 mg, 0.25 mL, Route: IVPB, Drug form: INJ, ONCE, Dosing Weight 122.727, kg, PRN Nausea & Vomiting, Start date: 05/24/17 12:58:00 CDT Notes: Do not give IV push. (Same as: Phenergan) Start Date: 05/24/17 Stop Date: 05/24/17 Status: Discontinued Benicar 20 mg, 1 tab, Route: PO, Drug form: TAB, Daily, Start date: 05/25/17 9:00:00 CDT , Duration: 30 day, Stop date: 06/23/17 9:00:00 CDT Start Date: 05/25/17 Stop Date: 05/25/17 Status: Discontinued CeleBREX 200 mg, Route: PO, Drug form: CAP, BID, Dosing Weight 122.727, kg, Start date: 0 05/24/17 9:00:00 CDT, Duration: 30 day, Stop date: 06/22/17 17:00:00 CDT Start Date: 05/24/17 Stop Date: 05/24/17 Status: Discontinued celecoxib 200 mg, 2 cap, Route: PO, Drug form: CAP, [id number], Dosing Weight 122.727, kg, St art date: 05/24/17 9:00:00 CDT, Duration: 30 day, Stop date: 06/22/17 21:00:00 C DT Notes: NSAID. Please check indication. Not for seizure. (Same As: CeleBREX) Start Date: 05/24/17 Stop Date: 05/25/17 Status: Discontinued celecoxib 100 mg oral capsule 200 mg=2 cap, PO, [id number], # 30 cap, 0 Refill(s), [facility] [address] [place] [address] Pharmacy Start Date: 05/25/17 Status: Ordered Cipro 400 mg, 200 mL, Route: IVPB, Drug form: INJ, ONCE, Dosing Weight 122.727, kg, St art date: 05/23/17 21:15:00 CDT, Stop date: 05/23/17 21:15:00 CDT, ABX Indicatio n: Surgical Prophylaxis Notes: Do not refrigerate Start Date: 05/23/17 Stop Date: 05/24/17 Status: Completed ciprofloxacin (ANES) Route: IV, Drug form: INJ, ONCE, Stop date: 05/24/17 8:40:00 CDT Start Date: 05/24/17 Stop Date: 05/24/17 Status: Completed D5W in Lactated Ringers 1,000 mL 1,000 mL, Rate: 100 ml/hr, Infuse over: 10 hr, Route: IV, Dosing Weight 122.727 kg, Total Volume: 1,000, Start date: 05/24/17 13:12:00 CDT, Duration: 30 day, St op date: 06/23/17 13:11:00 CDT Start Date: 05/24/17 Stop Date: 05/25/17 Status: Discontinued dexamethasone (ANES) Route: IV, Drug form: INJ, ONCE, Stop date: 05/24/17 8:40:00 CDT Start Date: 05/24/17 Stop Date: 05/24/17 Status: Completed dexmedetomidine (ANES) (ANES) Route: IV, Drug form: INJ, Start date: 05/24/17 7:55:00 CDT, Stop date: 05/24/17 8:55:00 CDT Start Date: 05/24/17 Stop Date: 05/24/17 Status: Completed dimenhyDRINATE 150 mg, Route: PO, Drug form: SOLN, Bedtime, Dosing Weight 122.727, kg, Start da te: 05/24/17 21:00:00 CDT, Duration: 30 day, Stop date: 06/22/17 21:00:00 CDT Start Date: 05/24/17 Stop Date: 05/24/17 Status: Canceled dimenhyDRINATE 150 mg, Route: PO, Drug form: TAB, Bedtime, Dosing Weight 122.727, kg, Start uzma e: 05/24/17 21:00:00 CDT, Duration: 30 day, Stop date: 06/22/17 21:00:00 CDT Start Date: 05/24/17 Stop Date: 05/25/17 Status: Discontinued docusate-senna 50 mg-8.6 mg oral tablet 2 tab, Route: PO, Drug Form: TAB, Dosing Weight 122.727, kg, BID, Start date: 17:00:00 CDT, Duration: 30 day, Stop date: 06/23/17 9:00:00 CDT Notes: (Same as Senokot-S) Equiv. to Britney-Colace. Start Date: 05/24/17 Stop Date: 05/25/17 Status: Discontinued fentaNYL (ANES) Route: IV, Drug form: INJ, ONCE, Stop date: 05/24/17 8:40:00 CDT Start Date: 05/24/17 Stop Date: 05/24/17 Status: Completed Flagyl 500 mg, 100 mL, Route: IVPB, Drug form: INJ, ONCE, Dosing Weight 122.727, kg, St art date: 05/23/17 21:21:00 CDT, Stop date: 05/23/17 21:21:00 CDT, ABX Indicatio n: Surgical Prophylaxis Notes: (Same as: Flagyl) Avoid alcohol. Start Date: 05/23/17 Stop Date: 05/24/17 Status: Completed gabapentin 300 mg, 1 cap, Route: PO, Drug form: CAP, Q8Hnow, Dosing Weight 122.727, kg, Sta rt date: 05/24/17 9:00:00 CDT, Duration: 30 day, Stop date: 06/23/17 1:00:00 CDT Notes: (Same as: Neurontin) Start Date: 05/24/17 Stop Date: 05/25/17 Status: Discontinued gabapentin 300 mg oral capsule 300 mg=1 cap, PO, Q8Hnow, # 20 cap, 0 Refill(s), Pharmacy: [address] [facility] Start Date: 05/25/17 Status: Ordered gabapentin 300 mg oral capsule 300 mg, Route: PO, Drug form: CAP, ONCE, Dosing Weight 122.727, kg, Start date: 05/23/17 21:15:00 CDT, Stop date: 05/23/17 21:15:00 CDT Start Date: 05/23/17 Stop Date: 05/24/17 Status: Completed glycopyrrolate (ANES) Route: IV, Drug form: INJ, ONCE, Stop date: 05/24/17 13:05:00 CDT Start Date: 05/24/17 Stop Date: 05/24/17 Status: Completed heparin 5,000 unit, 1 mL, Route: SUB-Q, Drug form: INJ, Q8H, Dosing Weight 122.727, kg, Start date: 05/24/17 21:00:00 CDT, Duration: 30 day, Stop date: 06/23/17 13:00:0 0 CDT Notes: porcine heparin Start Date: 05/24/17 Stop Date: 05/25/17 Status: Discontinued heparin 5,000 unit, 1 mL, Route: SUB-Q, Drug form: INJ, Q8H, Dosing Weight 122.727, kg, Start date: 05/24/17 9:00:00 CDT, Duration: 30 day, Stop date: 06/23/17 8:00:00 CDT Notes: porcine heparin Start Date: 05/24/17 Stop Date: 05/24/17 Status: Discontinued ketAMINE (ANES) Route: IV, Drug form: INJ, ONCE, Stop date: 05/24/17 8:50:00 CDT Start Date: 05/24/17 Stop Date: 05/24/17 Status: Completed levothyroxine 25 microgram, 1 tab, Route: PO, Drug form: TAB, Q630AM, Dosing Weight 122.727, k g, Start date: 05/25/17 6:30:00 CDT, Duration: 30 day, Stop date: 06/23/17 6:30: 00 CDT Notes: Take 1 hour before or 2 hours after meal; Enteral feeds may interefere wi th the absorption of this medication. (Same as:Levothroid) Start Date: 05/25/17 Stop Date: 05/25/17 Status: Discontinued levothyroxine 25 mcg (0.025 mg) oral tablet 25 microgram=1 tab, PO, Daily, # 30 tab, 0 Refill(s) Start Date: 05/17/17 Status: Ordered lidocaine (ANES) Route: IV, Drug form: INJ, ONCE, Stop date: 05/24/17 8:40:00 CDT Start Date: 05/24/17 Stop Date: 05/24/17 Status: Completed Lovenox 40 mg/0.4 mL subcutaneous solution 40 mg, SUB-Q, Daily, X 14 day, # 14 inj, 0 Refill(s), Pharmacy: [address] [facility] Start Date: 05/25/17 Stop Date: 06/08/17 Status: Ordered LR 1000 mL INJ (ANES) Route: IV, Total Volume: 1,000, Start date: 05/24/17 7:24:00 CDT, Stop date: 05/02 8:24:00 CDT Start Date: 05/24/17 Stop Date: 05/24/17 Status: Completed magnesium oxide 400 mg, 1 tab, Route: PO, Drug form: TAB, BID, Dosing Weight 122.727, kg, Start date: 05/24/17 17:00:00 CDT, Duration: 30 day, Stop date: 06/23/17 9:00:00 CDT Notes: (Same as: Mag-Ox 400)Magnesium oxide [id number] elemental magnesiumDose= ____mg magnesium oxide (___mg elemental magnesium) Start Date: 05/24/17 Stop Date: 05/25/17 Status: Discontinued melatonin 3 mg oral tablet 3 mg=1 tab, PO, Bedtime, PRN for insomnia, # 60 tab, 0 Refill(s) Start Date: 05/24/17 Stop Date: 07/23/17 Status: Ordered metoclopramide 10 mg, 2 mL, Route: IV, Drug form: INJ, Q6H, Dosing Weight 122.727, kg, PRN Naus ea, Start date: 05/24/17 8:01:00 CDT, Duration: 30 day, Stop date: 06/23/17 8:00 :00 CDT Notes: (Same as: Messi) Start Date: 05/24/17 Stop Date: 05/25/17 Status: Discontinued metroNIDAZOLE (ANES) Route: IV, Drug form: INJ, ONCE, Stop date: 05/24/17 8:40:00 CDT Start Date: 05/24/17 Stop Date: 05/24/17 Status: Completed midazolam (ANES) Route: IV, Drug form: SOLN, ONCE, Stop date: 05/24/17 8:40:00 CDT Start Date: 05/24/17 Stop Date: 05/24/17 Status: Completed neostigmine (ANES) Route: IV, Drug form: INJ, ONCE, Stop date: 05/24/17 13:05:00 CDT Start Date: 05/24/17 Stop Date: 05/24/17 Status: Completed ondansetron 4 mg, 2 mL, Route: IVP, Drug form: INJ, Q8H, Dosing Weight 122.727, kg, PRN Naus ea & Vomiting, Start date: 05/24/17 8:04:00 CDT, Duration: 30 day, Stop date: 06/23/17 8:03:00 CDT Notes: (Same as: Caitlin) MEDICATION WASTE Product Size: 4 mgProduct Was ned: ___ mg Start Date: 05/24/17 Stop Date: 05/25/17 Status: Discontinued ondansetron (ANES) Route: IV, Drug form: INJ, ONCE, Stop date: 05/24/17 13:05:00 CDT Start Date: 05/24/17 Stop Date: 05/24/17 Status: Completed Phenergan 12.5 mg, 0.5 mL, Route: IVPB, Drug form: INJ, Q6H, Dosing Weight 122.727, kg, MO N Nausea & Vomiting, Start date: 05/24/17 13:12:00 CDT, Duration: 30 day, Stop date: 06/23/17 13:11:00 CDT Notes: Do not give IV push. (Same as: Phenergan) Start Date: 05/24/17 Stop Date: 05/25/17 Status: Discontinued pneumococcal 13-valent vaccine 0.5 mL, Route: IM, Drug Form: INJ, Daily, Start date: 05/25/17 9:00:00 CDT, Dura tion: 1 doses or times, Stop date: 05/25/17 9:00:00 CDT Notes: Shake well prior to use (Same as: Prevnar 13) Start Date: 05/25/17 Stop Date: 05/25/17 Status: Completed promethazine 12.5 mg, 0.5 mL, Route: IVPB, Drug form: INJ, Q6H, Dosing Weight 122.727, kg, MO N Nausea, Start date: 05/24/17 8:03:00 CDT, Duration: 30 day, Stop date: 7 8:02:00 CDT Notes: Do not give IV push. (Same as: Phenergan) Start Date: 05/24/17 Stop Date: 05/24/17 Status: Discontinued propofol (ANES) Route: IV, Drug form: INJ, ONCE, Stop date: 05/24/17 8:40:00 CDT Start Date: 05/24/17 Stop Date: 05/24/17 Status: Completed propofol (ANES) (ANES) Route: IV, Drug form: INJ, Start date: 05/24/17 11:34:00 CDT, Stop date: 7 12:34:00 CDT Start Date: 05/24/17 Stop Date: 05/24/17 Status: Completed Reglan 10 mg, 2 mL, Route: IVP, Drug form: INJ, Q6H, Dosing Weight 122.727, kg, PRN Enzo sea & Vomiting, Start date: 05/24/17 13:12:00 CDT, Duration: 30 day, Stop date: 06/23/17 13:11:00 CDT Notes: (Same as: Messi) Start Date: 05/24/17 Stop Date: 05/25/17 Status: Discontinued rocuronium (ANES) Route: IV, Drug form: INJ, ONCE, Stop date: 05/24/17 8:40:00 CDT Start Date: 05/24/17 Stop Date: 05/24/17 Status: Completed scopolamine 1.5 mg transdermal film 1 patch, Route: TOP, Drug Form: ERFILM, Dosing Weight 122.727, kg, ONCE, Start d ate: 05/23/17 21:15:00 CDT, Stop date: 05/23/17 21:15:00 CDT Start Date: 05/23/17 Stop Date: 05/24/17 Status: Completed simethicone 80 mg, 1 tab, Route: PO, Drug form: CHEWTAB, QID-After Meals, Dosing Weight 122. 727, kg, PRN Gas, Start date: 05/24/17 8:04:00 CDT, Duration: 30 day, Stop date: 06/23/17 8:03:00 CDT Notes: (Same as: Maricruz) Start Date: 05/24/17 Stop Date: 05/24/17 Status: Discontinued simethicone 80 mg, 1 tab, Route: CHEW, Drug form: CHEWTAB, QID, Dosing Weight 122.727, kg, P RN Gas, Start date: 05/24/17 13:12:00 CDT, Duration: 30 day, Stop date: 06/23/17 13:11:00 CDT Notes: (Same as: Maricruz) Start Date: 05/24/17 Stop Date: 05/25/17 Status: Discontinued tramadol 100 mg, 2 tab, Route: PO, Drug form: TAB, Q6H, Dosing Weight 122.727, kg, PRN Pa in Score 1-3, Start date: 05/24/17 8:04:00 CDT, Duration: 30 day, Stop date: 05/02 8:03:00 CDT Notes: Not to exceed 400mg/day. (Same As: Ultram) Start Date: 05/24/17 Stop Date: 05/25/17 Status: Discontinued tramadol 50 mg oral tablet 100 mg=2 tab, PO, Q6H, PRN Pain Score 1-3, # 20 tab, 0 Refill(s) Start Date: 05/25/17 Stop Date: 05/26/18 Status: Ordered Tylenol Caplet Extra Strength 500 mg oral tablet 500 mg=1 tab, PO, Q4H, PRN Pain, # 60 tab, 0 Refill(s) Start Date: 05/17/17 Stop Date: 05/27/17 Status: Ordered Zofran 4 mg, 1 tab, Route: PO, Drug form: TAB, Q8H, Dosing Weight 122.727, kg, Start da te: 05/24/17 16:00:00 CDT, Duration: 30 day, Stop date: 06/23/17 12:00:00 CDT Notes: (Same as: Zofran) Start Date: 05/24/17 Stop Date: 05/25/17 Status: Discontinued Results BLOOD BANK RESULTS Most recent to 1 oldest [Reference Range]: ABO/Rh O POS *Unknown* (05/24/17 6:48 AM) Antibody Scrn Negative (05/24/17 6:48 AM) ELECTROLYTES Most recent to 1 2 oldest [Reference Range]: Sodium Lvl [135-145 137 mEq/L 142 mEq/L mEq/L] (05/25/17 4:03 AM) (05/17/17 2:00 PM) Potassium Lvl 4.3 mEq/L 3.7 mEq/L [3.5-5.1 mEq/L] (05/25/17 4:03 AM) (05/17/17 2:00 PM) Chloride Lvl [95-109 102 mEq/L 105 mEq/L mEq/L] (05/25/17 4:03 AM) (05/17/17 2:00 PM) CO2 [24-32 mEq/L] 20 mEq/L 28 mEq/L *LOW* (05/17/17 2:00 PM) (05/25/17 4:03 AM) AGAP [10.0-20.0 19.3 mEq/L 12.7 mEq/L mEq/L] (05/25/17 4:03 AM) (05/17/17 2:00 PM) CHEM PANEL Most recent to 1 2 oldest [Reference Range]: Creatinine Lvl 1.32 mg/dL 0.61 mg/dL [0.50-1.40 mg/dL] (05/25/17 4:03 AM) (05/17/17 2:00 PM) eGFR 41 mL/min/1.73m2 1 94 mL/min/1.73m2 2 *NA* *NA* (05/25/17 4:03 AM) (05/17/17 2:00 PM) BUN [7-22 mg/dL] 22 mg/dL 14 mg/dL (05/25/17 4:03 AM) (05/17/17 2:00 PM) Glucose Lvl [70-99 120 mg/dL 93 mg/dL mg/dL] *HI* (05/17/17 2:00 PM) (05/25/17 4:03 AM) Calcium Lvl 8.8 mg/dL 9.6 mg/dL [8.5-10.5 mg/dL] (05/25/17 4:03 AM) (05/17/17 2:00 PM) 1Result Comment: The eGFR is calculated using the [...] from the National Kid[employer] Disease Education Program ( NKDEP) which additionally recommends that when the eGFR is used in patients with extremes of body mass index for purposes of drug dosing, the eGFR should be mul tiplied by the estimated BMI. 2Result Comment: The eGFR is calculated using the [...] from the National Kid[employer] Disease Education Program ( NKDEP) which additionally recommends that when the eGFR is used in patients with extremes of body mass index for purposes of drug dosing, the eGFR should be mul tiplied by the estimated BMI. SPECIAL CHEMISTRY Most recent to 1 2 oldest [Reference Range]: Hgb A1C [<=5.6 %] 5.5 % (05/17/17 2:00 PM) HEMATOLOGY Most recent to 1 2 oldest [Reference Range]: WBC [3.7-10.4 K/CMM] 14.4 K/CMM 7.1 K/CMM *HI* (05/17/17 2:00 PM) (05/25/17 4:03 AM) RBC [4.20-5.40 3.83 M/CMM 4.15 M/CMM M/CMM] *LOW* *LOW* (05/25/17 4:03 AM) (05/17/17 2:00 PM) Hgb [12.0-16.0 g/dL] 12.4 g/dL 13.4 g/dL (05/25/17 4:03 AM) (05/17/17 2:00 PM) Hct [36.0-48.0 %] 36.1 % 39.5 % (05/25/17 4:03 AM) (05/17/17 2:00 PM) MCV [80.0-98.0 fL] 94.3 fL 95.3 fL (05/25/17 4:03 AM) (05/17/17 2:00 PM) MCH [27.0-31.0 pg] 32.2 pg 32.3 pg *HI* *HI* (05/25/17 4:03 AM) (05/17/17 2:00 PM) MCHC [32.0-36.0 34.2 g/dL 33.9 g/dL g/dL] (05/25/17 4:03 AM) (05/17/17 2:00 PM) RDW [11.5-14.5 %] 13.2 % 13.4 % (05/25/17 4:03 AM) (05/17/17 2:00 PM) Platelet [133-450 269 K/CMM 282 K/CMM K/CMM] (05/25/17 4:03 AM) (05/17/17 2:00 PM) MPV [7.4-10.4 fL] 8.6 fL 8.6 fL (05/25/17 4:03 AM) (05/17/17 2:00 PM) Segs [45.0-75.0 %] 87.8 % 69.7 % *HI* (05/17/17 2:00 PM) (05/25/17 4:03 AM) Lymphocytes 5.8 % 19.1 % [20.0-40.0 %] *LOW* *LOW* (05/25/17 4:03 AM) (05/17/17 2:00 PM) Monocytes [2.0-12.0 6.3 % 7.7 % %] (05/25/17 4:03 AM) (05/17/17 2:00 PM) Eosinophils [0.0-4.0 1.6 % %] (05/17/17 2:00 PM) Basophils [0.0-1.0 0.1 % 1.9 % %] (05/25/17 4:03 AM) *HI* (05/17/17 2:00 PM) Segs-Bands # 12.6 K/CMM 4.9 K/CMM [1.5-8.1 K/CMM] *HI* (05/17/17 2:00 PM) (05/25/17 4:03 AM) Lymphocytes # 0.8 K/CMM 1.4 K/CMM [1.0-5.5 K/CMM] *LOW* (05/17/17 2:00 PM) (05/25/17 4:03 AM) Monocytes # [0.0-0.8 0.9 K/CMM 0.5 K/CMM K/CMM] *HI* (05/17/17 2:00 PM) (05/25/17 4:03 AM) Eosinophils # 0.1 K/CMM [0.0-0.5 K/CMM] (05/17/17 2:00 PM) Basophils # [0.0-0.2 0.1 K/CMM K/CMM] (05/17/17 2:00 PM) Immunizations Not Given Vaccine Date Status Refusal [...] Smoking Cessation Counseling No Assessment and Plan Extracted from: Title: APMS Consult Note Author: Ino Ring MD Date: 05/25/17 Patient: RAMIREZ PALACIO Age: 67 years Sex: Female : 1950 Associated Diagnoses: None Author: Ino Ring MD Basic Information Referral source: Alex Hooker MD. Chief Complaint Acute postoperative abdiminal pain. History of Present Illness Pt is a 67 y/o F w/ hx HTN, hypothyroidism, meniere's disease, arthritis, endometrial cancer s/p robotic lap vaginal hysterectomy/BSO/appendectomy/lymphadenectomy, POD1. Pt received bilateral QL single shot blocks and is on ERAS protocol. Pt doing well, reports pain well controlled. no problems ambulating. Denies N/V Review of Systems Constitutional: Negative except as documented in history of present illness. Respiratory: Negative. Cardiovascular: Negative except as documented in history of present illness. Gastrointestinal: Negative. Genitourinary: Negative. Endocrine: Negative except as documented in history of present illness. Musculoskeletal: Negative except as documented in history of present illness. Integumentary: Negative except as documented in history of present illness. Neurologic: Negative except as documented in history of present illness. Psychiatric: Negative. All other systems are negative Health Status Allergies: Allergic Reactions (Selected) Severity Not Documented Codeine- No reactions were documented. Penicillins- No reactions were documented., Allergies (2) ActiveReaction codeineNone Documented penicillinsNone Documented Current medications: (Selected) Inpatient Medications Ordered Benicar: 20 mg, 1 tab, PO, Daily D5W in Lactated Ringers 1,000 mL: 100 ml/hr, IV, Stop: 06/23/17 13:11:00 CDT Phenergan: 12.5 mg, 0.5 mL, IVPB, Q6H, PRN: Nausea & Vomiting Reglan: 10 mg, 2 mL, IVP, Q6H, PRN: Nausea & Vomiting Zofran: 4 mg, 1 tab, PO, Q8H acetaminophen: 1,000 mg, 2 tab, PO, Q6Hnow amLODIPine: 10 mg, 1 tab, PO, Daily celecoxib: 200 mg, 2 cap, PO, [id number] docusate-senna 50 mg-8.6 mg oral tablet: 2 tab, PO, BID gabapentin: 300 mg, 1 cap, PO, Q8Hnow heparin: 5,000 unit, 1 mL, SUB-Q, Q8H levothyroxine: 25 microgram, 1 tab, PO, [id number] magnesium oxide: 400 mg, 1 tab, PO, BID metoclopramide: 10 mg, 2 mL, IV, Q6H, PRN: Nausea ondansetron: 4 mg, 2 mL, IVP, Q8H, PRN: Nausea & Vomiting simethicone: 80 mg, 1 tab, CHEW, QID, PRN: Gas tramadol: 100 mg, 2 tab, PO, Q6H, PRN: Pain Score 1-3 Pending Complete pneumococcal 13-valent vaccine: 0.5 mL, IM, Daily Suspended dimenhyDRINATE: 150 mg, PO, Bedtime Documented Medications Documented Tylenol Caplet Extra Strength 500 mg oral tablet: 500 mg, 1 tab, PO, Q4H, for 10 day, PRN: Pain, 60 tab, 0 Refill(s) amLODIPine-benazepril 10 mg-20 mg oral capsule: 1 cap, PO, Daily, 30 cap, 0 Refill(s) dimenhyDRINATE 50 mg oral tablet: 150 mg, 3 tab, PO, Bedtime, 0 Refill(s) levothyroxine 25 mcg (0.025 mg) oral tablet: 25 microgram, 1 tab, PO, Daily, 30 tab, 0 Refill(s) melatonin 3 mg oral tablet: 3 mg, 1 tab, PO, Bedtime, for 60 day, PRN: for insomnia, 60 tab, 0 Refill(s), Medications (17) Active Scheduled: (10) acetaminophen 500 mg TAB 1,000 mg 2 tab, PO, Q6Hnow amLODIPine 10 mg TAB 10 mg 1 tab, PO, Daily celecoxib 100 mg CAP 200 mg 2 cap, PO, [id number] docusate-senna 50-8.6 mg TAB 2 tab, PO, BID gabapentin 300 mg CAP 300 mg 1 cap, PO, Q8Hnow heparin 5000 unit/1 ml INJ VL 5,000 unit 1 mL, SUB-Q, Q8H levothyroxine 25 microgram TAB 25 microgram 1 tab, PO, Q630AM magnesium oxide (242 mg elemental) tab 400 mg 1 tab, PO, BID olmesartan 20 mg tab 20 mg 1 tab, PO, Daily ondansetron 4 mg TAB 4 mg 1 tab, PO, Q8H Continuous: (1) D5W in Lactated Ringers 1,000 mL 1,000 mL, IV, 100 ml/hr PRN: (6) metoclopramide 10 mg/2 ml VL 10 mg 2 mL, IV, Q6H metoclopramide 10 mg/2 ml VL 10 mg 2 mL, IVP, Q6H ondansetron 4 mg/2ml INJ VL 4 mg 2 mL, IVP, Q8H promethazine 25 mg/1 ml INJ 12.5 mg 0.5 mL, IVPB, Q6H simethicone 80 mg CHEW 80 mg 1 tab, CHEW, QID traMADol 50 mg TAB 100 mg 2 tab, PO, Q6H Problem list: All Problems Abnormal vaginal bleeding / SNOMED CT 638505419 / Confirmed HTN (hypertension) / SNOMED CT 3950694089 / Confirmed Hypothyroid / SNOMED CT 807629097 / Confirmed Arthritis / SNOMED CT 4252992073 / Confirmed left knee Endometrial cancer / SNOMED CT 223291564 / Confirmed Aural vertigo, left / SNOMED CT 384804565 / Confirmed Obesity / SNOMED CT 4638907761 / Confirmed, Active Problems (7) Abnormal vaginal bleeding Arthritis Aural vertigo, left Endometrial cancer HTN (hypertension) Hypothyroid Obesity Histories Past Medical History: Active Abnormal vaginal bleeding (815078409) Aural vertigo, left (289825614) Arthritis (3061354744) Comments: 03/29/2017 CDT 14:00 Latricia Lr RN left knee Hypothyroid (733318075) Endometrial cancer (681136528) Obesity (8301183949) HTN (hypertension) (0861196461) Family History: History is unknown. Procedure history: Arthrotomy of knee (32189168). CEIOL - Cataract extraction and insertion of intraocular lens (7169190671). Dilatation and curettage (5891867911). Social History Social & Psychosocial Habits Tobacco 05/24/2017 Use: Never smoker Exposure to Tobacco Smoke None Cigarette Smoking Last 365 Days No Reg Smoking Cessation Counseling No . Physical Examination VS/Measurements Measurements from flowsheet : Measurements 05/24/2017 06:49 Heparin Dosing Weight (kg) 80.53 05/24/2017 06:49 Height 160.02 cm Height Collection Method Stated Weight 122.727 kg Dosing Weight Difference Percent 0 % Dosing Weight Collection Method Estimated Body Surface Area 2.3356 m2 Body Mass Index 47.93 m2 , Vital Signs (last 24 hrs) Last Charted Temp Oral98.9 DegF (MAY 25:48) Heart Rate Jhubtyybef02 bpm (MAY 25:48) Resp Rate 20 BRMIN (MAY 25:48) SBPH 162mmHg (MAY 25:48) DBP74 mmHg (MAY 25:48) TqI908 % (MAY 25:48) Review / Management Results review: Labs (Last four charted values) WBC H 14.4(MAY 25)7.1(MAY 17) Hgb 12.4(MAY 25)13.4(MAY 17) Hct 36.1(MAY 25)39.5(MAY 17) Plt 269(MAY 25)282(MAY 17) Na 137(MAY 25)142(MAY 17) K 4.3(MAY 25)3.7(MAY 17) CO2 L 20(MAY 25)28(MAY 17) Cl 102(MAY 25)105(MAY 17) Cr 1.32(MAY 25)0.61(MAY 17) BUN 22(MAY 25)14(MAY 17) Glucose Random H 120(MAY 25)93(MAY 17) Ca 8.8(MAY 25)9.6(MAY 17). Impression and Plan Diagnosis Acute postoperative abdominal pain (IOX21-QE G89.18, Working, Medical). Pt is a 67 y/o F w/ hx HTN, hypothyroidism, meniere's disease, arthritis, endometrial cancer s/p robotic lap vaginal hysterectomy/BSO/appendectomy/lymphadenectomy, POD1. -Pain well controlled -Block resolving -continue ERAS protocol -We will sign off at this time. Thank you for the consult. Addendum TEACHING PHYSICIAN ADDENDUM: I saw and personally examined this patient and discussed the by plan of care with this resident. I have reviewed the note below and agree with the [place], history, examination findings and the plan of care. Kit Perez MD on 05/27/2017 09:24 Extracted from: Title: Clinical Document Author: Chica Ibarra MD Date: 05/25/17 SUBJECTIVE Reports she is feeling very well. Pain is well controlled. She has ambulated shirt distances and denies sxs of Anemia. She reports minimal to no vaginal bleeding. She is tolerating Regular diet w/o N/V. Has not passed flatus yet. Reports regularly using her IS and noticing improvements in it. OBJECTIVE 24hr Labs 05/25 0403 Glucose Mrh662 H BUN22 Creatinine Lvl1.32 Sodium Iib898 Potassium Lvl4.3 Chloride Jld462 CO220 L AGAP19.3 Calcium Lvl8.8 eGFR41 WBC14.4 H RBC3.83 L Hgb12.4 Hct36.1 MCV94.3 MCH32.2 H MCHC34.2 RDW13.2 Ydeamzyh296 MPV8.6 Segs87.8 H Monocytes6.3 Lymphocytes5.8 L Basophils0.1 Segs-Bands #12.6 H Lymphocytes #0.8 L Monocytes #0.9 H 05/24 1430 POC Performing LocatioSee Note Glucose JXN268 H 05/24 0648 Antibody ScrnNegative ABO/RhO POS Guillermo still necessary (Yes/No): Line still necessary (Yes/No): VitalsTmp(F)Tmp(C)GhlezSWGDVFkpivYIYfM7CBO5KSZX0 05/25 07:4898.937.81pxfj416/74---933731------ 05/25 04:5398.536.81ucyq533/72---[id number]------ 05/25 00:1598.737.46ygfe397/5990992602------ 05/24 20:2598.336.44ibaq375/73---2844716------ 05/24 15:2197.336.81adtz671/70---149584------ 24 Hr Tmax: 98.9F (37.17c) at 05/25 07:4824 Hr Tmin: 97.3F (36.28c) at 05/24 15:21 36 Hr Tmax: 98.9F (37.17c) at 05/25 07:4836 Hr Tmin: 97.3F (36.28c) at 05/24 15:21 DateWt(kg)Wt(lb)Ht(cm)Ht(in)Method 05/24122.73 270.28691.02 63.00Estimated 05/17 (initial)122.73 270.47798.02 63.00Measured I&OR UOP 120cc/hr for the last 4 hrs Medications (33) Active Scheduled Meds (9): 05/24/17 acetaminophen 1,000 mg PO Q6Hnow 05/24/17 celecoxib 200 mg PO S17Hfhc 05/24/17 dimenhyDRINATE 150 mg PO Bedtime 05/24/17 docusate-senna (docusate-senna 50 mg-8.6 mg oral tablet) 2 tab PO BID 05/24/17 gabapentin 300 mg PO Q8Hnow 05/24/17 heparin 5,000 unit SUB-Q Q8H 05/24/17 magnesium oxide 400 mg PO BID 05/24/17 ondansetron (Zofran) 4 mg PO Q8H 05/25/17 pneumococcal 13-valent vaccine 0.5 mL IM Daily Unscheduled Meds: None PRN Meds (6): 05/24/17 metoclopramide 10 mg IV Q6H 05/24/17 metoclopramide (Reglan) 10 mg IVP Q6H 05/24/17 ondansetron 4 mg IVP Q8H 05/24/17 promethazine (Phenergan) 12.5 mg IVPB Q6H 05/24/17 simethicone 80 mg CHEW QID 09/08/17 tramadol 100 mg PO Q6H One Time Meds (17): (Completed) acetaminophen (acetaminophen (ANES)) IV ONCE 05/23/17 (not done) ciprofloxacin (Cipro) 400 mg IVPB ONCE 200 ml/hr (Completed) ciprofloxacin (ciprofloxacin (ANES)) IV ONCE (Completed) dexamethasone (dexamethasone (ANES)) IV ONCE (Completed) fentaNYL (fentaNYL (ANES)) IV ONCE 05/23/17 (Completed) gabapentin (gabapentin 300 mg oral capsule) 300 mg PO ONCE (Completed) glycopyrrolate (glycopyrrolate (ANES)) IV ONCE (Completed) ketAMINE (ketAMINE (ANES)) IV ONCE (Completed) lidocaine (lidocaine (ANES)) IV ONCE 05/23/17 (not done) metroNIDAZOLE (Flagyl) 500 mg IVPB ONCE 200 ml/hr (Completed) metroNIDAZOLE (metroNIDAZOLE (ANES)) IV ONCE (Completed) midazolam (midazolam (ANES)) IV ONCE (Completed) neostigmine (neostigmine (ANES)) IV ONCE (Completed) ondansetron (ondansetron (ANES)) IV ONCE (Completed) propofol (propofol (ANES)) IV ONCE (Completed) rocuronium (rocuronium (ANES)) IV ONCE 05/23/17 (Completed) scopolamine (scopolamine 1.5 mg transdermal film) 1 patch TOP ONCE Continuous Infusions (1): 05/24/17 D5W in Lactated Ringers 1,000 mL 1,000 mL 100 ml/hr Gen: NAD, A&O X3 Cards: RRR Pulm: CTAB Abd: Appropriately TTP, BS+, non distended, Soft, No rebound, no guarding Incision: C/D/I, some bruising noted around midline incision that was outlined Clerical And Administrative Workers: Scant vaginal spotting Ext: calves non- ttp ASSESSMENT & EXAM 67 yo with HTN, hypothyroidism and newly diagnosed grade 2 endometrial adenocarcinoma POD #1 from Robotic Assisted hysterecomy with bilateral salpingo-oophorectomy, Bilateral pelvic lymphadenectomy and infracolic omentectamy 1. POD #1, AFVSS 2. Heme: 13.4--> EBL: 150cc--> 12.4 CBC; Denies sxs of Anemia 3. GI: Tolerating regular diet, has not passed flatus yet 4. : guillermo removed, pt DTV, UOP: 115cc/hour 5. Pain: Tolerating well on current regimen 6. PPX: s/p Heparing 5,000 Q8hr SubQ 7. HTN: Takes amlodipine 07/05 , due to be given this AM 8. Hypothyroidism: on Synthroid 25 mcg, due to be given this AM 9. Endometrial CA: Pathology Pending 10. Vertigo: pt with dz for a number of years per pt. She takes dramimine qD. Had 1x episode yesterday for brief period. Will write for this tonight if pt is to stay. Dispo: Continue with routine post op care, possible Dc home today pending voiding Pt examined and discussed with Dr Scot Ibarra MD PGY-2
[2018-10-20] MEDS ORDERED: LEVOFLOXACIN 500MG/D5W 100ML 100 ML IV ONE (09:15)
[2018-10-20] MEDS: SODIUM CHLORIDE 0.9% 1000ML 1,000 ML IV SCH ×2 (09:56→22:08)
[2018-10-20] MEDS ORDERED: SCOPOLAMINE 1.5 MG PATCH TOP SCH (10:00)
[2018-10-20] MEDS ORDERED: MORPHINE SULFATE 2 MG/ML SYR 1ML IV PRN (10:00)
[2018-10-20] MEDS ORDERED: FENTANYL CITRATE/PF 100MCG/2 ML INJ ONE ×2 (11:47→17:55)
[2018-10-20] MEDS ORDERED: ONDANSETRON HCL INJ 2MG/ML 2ML 2 MG/ML VIAL ONE ×2 (11:50→18:04)
--- NOTE | 2018-10-20 12:15 | Operative Report ---
DATE OF PROCEDURE: October 20, 2018 PREOPERATIVE DIAGNOSES 1. Morbid obesity, body mass index of 45. 2. Hypertension. 3. Dyslipidemia. 4. Gastroesophageal reflux disease. POSTOPERATIVE DIAGNOSES 1. Morbid obesity, body mass index of 45. 2. Hypertension. 3. Dyslipidemia. 4. Gastroesophageal reflux disease. PREOPERATIVE INDICATIONS: Treat disease, prevent complications related to comorbid conditions of obesity. PROCEDURE PERFORMED: Laparoscopic vertical sleeve gastrectomy. ANESTHESIA: General. TRAINS DISPATCHER SUPERVISOR: Vinicio Kapadia Patient Observation Assistant (needed due to complexity of case). FLUIDS: 500 mL crystalloid. ESTIMATED BLOOD LOSS: 20 mL. DRAINS: None. COMPLICATIONS: None. SPECIMENS: Partial stomach. GRAFTS: None. FINDINGS 1. Large complex ventral hernia with adhesions to the anterior abdominal wall. 2. Negative upper GI anatomy. 3. Negative intraoperative EGD leak test. PROCEDURAL DETAILS: The patient was brought to the operating room and was intubated under general endotracheal anesthesia. She was sterilely prepped and draped in the usual fashion. Preprocedure pause was performed identifying the patient and the use of perioperative antibiotics, intended procedure, and staff surgeon. A primary 5-mm left subcostal incision was made. A Veress needle was inserted to insufflate the abdomen to a pressure of 15 mmHg pressure. Four additional trocars were placed in standard position, and a liver retractor was used to expose the proximal stomach and hiatus. I then mobilized the greater curvature of the stomach by ligating the gastroepiploic, short gastric, and posterior short gastric vessels using the [place] LigaSure device. This dissection began 4 cm proximal to the pyloric valve and ended at the left beck of the diaphragm. I then inserted an adult-size endoscope along the lesser curvature of the stomach to be used as a bougie. The greater curvature of the stomach was resected using multiple firings of an Endo-ARTIS purple-load Covidien stapling device reinforced with Seamguard. We conducted intraoperative EGD leak test. No leaks were identified and the specimen was removed through the right periumbilical port site. Port site was closed with 0 Vicryl suture using the Bruno-Parth technique. We verified hemostasis, removed the liver retractor, desufflated the abdomen, and removed all the trocars. We closed the incision sites with 4-0 Monocryl suture in subcuticular fashion. Bupivacaine 0.25% was used at both the preperitoneal incision sites. The patient tolerated the procedure well. All surgical sponge and instrument counts were correct. Job#: [id number] EDGARDO
[2018-10-20] MEDS ORDERED: MORPHINE SULFATE INJ 4 MG/ML INJ 1ML ONE ×2 (12:25→13:00)
--- NOTE | 2018-10-20 15:37 | History and Physical ---
CHIEF COMPLAINT: Admitted for bariatric surgery. HISTORY OF PRESENT ILLNESS: This is a 68-year-old white woman who today underwent successful laparoscopic vertical sleeve gastrectomy. The surgery was performed by her general surgeon, namely Dr. Bert Doherty. She also underwent EGD during this procedure, and was found to have a large complex ventral hernia with adhesions to the anterior abdominal wall. The patient at this time complains of urinary retention. States she does have some abdominal pain. Denies any nausea or vomiting. The patient states she does have a history of hypertension, as well as GERD. REVIEW OF SYSTEMS GENERAL: Weight has been stable. No fever or chills. HEENT: No headaches. No visual disturbances. CARDIOVASCULAR: No chest pain. No shortness of breath or cough. GI: No nausea or vomiting. : The patient states she cannot urinate. The Amaral catheter has already been removed. NEUROMUSCULAR: She denies any numbness or pain. PAST MEDICAL HISTORY 1. Extreme obesity complicating underlying hypertension and GERD. 2. Hypertensive heart disease. 3. GERD. 4. Hyperlipidemia. 5. Hypothyroidism. 6. Chronic insomnia. ALLERGIES 1. PENICILLIN. 2. CODEINE. SURGICAL HISTORY 1. Total abdominal hysterectomy with bilateral salpingo-oophorectomy in 2017. 2. Knee surgery in 1967. 3. Cataract surgery. HOME MEDICATIONS 1. Amlodipine with benazepril 10 per 20 mg. 2. Atorvastatin 10 mg p.o. at bedtime. 3. Vitamin D3 2000 units daily. 4. [place]-3 fish oil once daily. 5. Levothyroxine 25 mcg daily. 6. Acetaminophen 500 mg daily as needed for fever or pain. 7. Cinnamon supplement 1000 mg p.o. daily. 8. Tylenol Cold and Flu 2 pills every night as needed for cough and congestion. 9. Acetaminophen with diphenhydramine 3 pills every night as needed for insomnia. FAMILY HISTORY: Multiple family members with hypertension. SOCIAL HISTORY: The woman is retired and lives alone. She states she is a . No history of tobacco or alcohol use. PHYSICAL EXAMINATION GENERAL: She is somnolent but arousable. Her main issue is she cannot urinate. VITALS: Height is 5 feet 3 inches, weight is 270 pounds. BMI is 47. Blood pressure is 160/80, pulse is 98, respiratory rate is 18, oxygen saturation is 99% on room air. INTEGUMENT: Skin is warm and dry. No pallor, conjunctivitis or diaphoresis. HEENT: Anicteric sclerae. Moist mucous membranes. NECK: Supple. CARDIOVASCULAR: Tachycardic rate and rhythm. LUNGS: No rales. No rhonchi or wheezes. ABDOMEN: Obese. She has laparoscopic incisions that have Steri-Strips in place. They appear to be clean, dry and intact. No drainage appreciated. She has hypoactive bowel sounds in all 4 quadrants. No tenderness on palpation. EXTREMITIES: No edema or deformities. She has sequential compression devices on her bilateral lower legs. NEUROLOGIC: Intact. No deficits, but she is somnolent. DIAGNOSES 1. Status post laparoscopic sleeve gastrectomy. 2. Ventral hernia. 3. Status post esophagogastroduodenoscopy. 4. Extreme obesity. Body mass index 47 complicating underlying hypertension and gastroesophageal reflux disease. 5. Hypertensive heart disease. 6. Gastroesophageal reflux disease. 7. Urinary retention, likely. PLAN 1. Will order a straight urinary catheter to assess for urinary retention. 2. Will consider stopping scopolamine patch since this anticholinergic medication can worsen urinary retention. 3. Gentle blood pressure control. 4. Recommend the patient uses incentive spirometer 10 inspirations every hour to help prevent atelectasis. 5. Mobilize with physical therapy. 6. Will proceed with clear liquid diet tomorrow morning as per the bariatric surgeon's recommendations. 7. Will start enoxaparin this evening for deep venous thrombosis prophylaxis. 8. Will follow renal function particularly since the patient's hypertension is on CHANDRIKA inhibitors. 9. Follow electrolytes. 10. Pain control. I would like to thank Dr. Bert Doherty for involving me in the medical care of this patient. I spent an hour in the care of the patient. Job#: [id number] MEGAN SOLIZ
[2018-10-20] MEDS ORDERED: MIDAZOLAM HCL 2 MG/2 ML VIAL ONE (17:55)
[2018-10-20] MEDS ORDERED: SEVOFLURANE INHAL SOLN 250 ML PEN BTL ONE (18:04)
[2018-10-20] MEDS ORDERED: LIDOCAINE HCL 2% LOCAL INJ 5 ML SDV VIAL INJ ONE (18:04)
[2018-10-20] MEDS ORDERED: NEOSTIGMINE 5 MG/5ML SYR ONE (18:04)
[2018-10-20] MEDS ORDERED: ROCURONIUM BROMIDE 10 MG/ML 5ML VIAL ONE (18:04)
[2018-10-20] MEDS ORDERED: PROPOFOL IV EMULSION 10 MG/ML 20 ML VIAL ONE (18:04)
[2018-10-20] MEDS ORDERED: GLYCOPYRROLATE INJ 1MG/ 5 ML SYR ONE (18:04)
[2018-10-20] MEDS ORDERED: DEXAMETHASONE SOD PHOS INJ 4 MG/ML VIAL ONE (18:04)
[2018-10-20 19:31] VITALS: BP 188/84
[2018-10-20 20:00] VITALS: BP 188/84
[2018-10-20] MEDS: ENOXAPARIN SOD INJ 40 MG/0.4 ML SYR SC SCH (21:24)
[2018-10-20] MEDS: MORPHINE SULFATE INJ 4 MG/ML INJ 1ML IV PRN (21:24)
[2018-10-20] MEDS ORDERED: ATORVASTATIN 10 MG TAB PO SCH (22:00)
[2018-10-21] VITALS (9 sets, daily range): BP systolic 141–198; BP diastolic 63–84
[2018-10-21] MEDS: SODIUM CHLORIDE 0.9% 1000ML 1,000 ML IV SCH ×3 (02:35→17:31)
[2018-10-21] MEDS: MORPHINE SULFATE INJ 4 MG/ML INJ 1ML IV PRN ×3 (03:20→17:31)
--- NOTE | 2018-10-21 05:12 | NUR ---
Called Dr. Patel answering service and requested a call back. The patient's systolic blood pressure has been increasing. at 1999 it was 188/84, at 0000 it was 185/84 and the last bp taken at 0500 194/85. The patient is s/p laparoscopic vertical sleeve gastrectomy but reports her pain to be controlled with pain medication. States taking her blood pressure medication yesterday morning.
--- NOTE | 2018-10-21 05:17 | NUR ---
Dr. Patel called back at 0517 . I reported to him the last BP reading and he stated to reconcile the patient's home medications. I stated that they have been reconciled but her blood pressure medications are not due until 0900. He requested for me to administered them now.
[2018-10-21 06:13] LABS: ALANINE AMINOTRANSFERASE 16 IU/L (0-55); ALBUMIN 3.9 g/dL (3.5-5.0); ALBUMIN/GLOBULIN RATIO 1.1 (0.8-2.0); ALKALINE PHOSPHATASE 91 IU/L (40-150); ANION GAP 15.7 mmol/L (8-16); BLOOD UREA NITROGEN 8 mg/dL (7-26); BUN/CREATININE RATIO 12 (6-25); CARBON DIOXIDE 25 mmol/L (22-29); CHLORIDE 98 mmol/L (98-107); CREATININE, SERUM 0.65 mg/dL (0.57-1.11); EST GLOMERULAR FILTRATION RATE > 60 ML/MIN (60-); GLUCOSE 143 mg/dL (74-118); MAGNESIUM 1.6 MG/DL (1.3-2.1); PHOSPHORUS 2.2 MG/DL (2.3-4.7); POTASSIUM 3.7 mmol/L (3.5-5.1); SODIUM 135 mmol/L (136-145)
[2018-10-21] MEDS: LEVOTHYROXINE SODIUM 25 MCG TABLET PO SCH (06:15)
--- NOTE | 2018-10-21 06:15 | NUR ---
Dr. Patel came in to asses the patient and she reported feeling discomfort and not urinating much throughout the night. at [address] Patel ordered me to put in an indwelling Amaral Catheter immediately and to record output. Total output was 1100 and it was recorded in Input/output. Scheduled levothyroxine 25mcg, given and amlodipine besylate 10mg which patient stated that's what she usually takes at home.
[2018-10-21] MEDS ORDERED: AMLODIPINE BESYLATE 10 MG TAB PO SCH ×2 (06:30→09:00)
--- NOTE | 2018-10-21 07:00 | NUR ---
SHIFT REPORT RECEIVED FROM NIGHT RN WHILE ROUNDING. PT DENIES NEEDS AT THIS TIME.
[2018-10-21 07:23] LABS: BASOPHILS % 0.2 % (0.0-1.0); HEMATOCRIT 41.9 % (34.2-44.1); HEMOGLOBIN 14.1 g/dL (12.0-16.0); LYMPHOCYTES # (AUTO) 0.9 (1.0-3.2); LYMPHOCYTES % 6.3 % (18.0-39.1); MEAN CORPUSCULAR HGB CONC 33.7 g/dL (31-35); MEAN CORPUSCULAR VOLUME 95.2 fL (81-99); MONOCYTES # (AUTO) 1.2 (0.2-0.8); NEUTROPHILS # (AUTO) 12.6 (2.1-6.9); NEUTROPHILS % 84.4 % (38.7-80.0); PLATELET COUNT 282 x10e3/uL (140-360); RED CELL DISTRIBUTION WIDTH 13.1 % (11.7-14.4)
--- NOTE | 2018-10-21 07:54 | NUR ---
Surgery progress note S: Complaints of urinary retention overnight; catheter inserted; says she feels much better now O: AF, VSS Gen-no acute distress Abd- soft, incisions c/d/i A/P: POD 1, s/p Lap sleeve gastrectomy -Ambulate -Clears -DC Amaral this morning -May DC home later today if tolerating liquids and urinating -F/u with me in 1 week -Discussed with patient to start a full liquid diet after discharge
[2018-10-21] MEDS: CINNAMON 1000 MG PO SCH (09:00)
[2018-10-21] MEDS ORDERED: OLMESARTAN 20 MG TAB PO SCH (09:00)
[2018-10-21] MEDS: ENOXAPARIN SOD INJ 40 MG/0.4 ML SYR SC SCH ×2 (09:41→17:31)
--- NOTE | 2018-10-21 12:30 | NUR ---
Received patient. Patient A/O X3, even respirations on RA. Last BM yesterday, bowel sounds active. 5 abdominal incision sites dry and intact. Patient on clear liquid diet at this time. Amaral in place with pale yellow urine. Up with standby assist. R AC 20 gauge with NS @ 125mls/hr. SCD's and ned hose in place. Call light in reach, will continue to monitor.
--- NOTE | 2018-10-21 12:41 | NUR ---
NATURAL RESOURCES INSTRUCTOR INITIAL ASSESSMENT [employer] Worker to bedside to discuss plan of care with patient/family. CM/SW role and care transitions discussed. Anticipated discharge plan discussed along with duration of care. CM/SW discussed patients right to make decisions in care. CM/SW work hours given. Patient lives: alone, but has a sister Tara Mclean [phone] and a friend Kacy Hutchison [phone] that live near and help Admit/Transfer: ED POA/Emergency contact: sister Tara Mclean [phone] Current/Previous Home Health: no. She does have a home health care policy PCP/Follow-up Care: Dr. Rodrigo Tovar Current/Previous DME: none Other Services: none Employment Status: Retired Areas of Concerns: none Referral Needs: none Education Needs: none IMM/MILES given and signed (if applicable): IMM from ED Goal for discharge: To return home CM/SW left business card at the bedside with contact information. Name and number was also written on the patients whiteboard. Patient verbalized understanding of discussion. CM will follow-up with ongoing discharge and transition of care needs.
--- NOTE | 2018-10-21 14:50 | NUR ---
Visit made by the Spiritual Care Department Pastoral Visitor, Toña Zhuo. PV provided pastoral presence, prayer, hospitality, and supportive listening. Pastoral Visitor informed pt/family of the scope of [facility] and availability. DIMPLE SCHAEFFER [employer] Spiritual Care Department O: [phone] Pager: [phone] ([phone] number calling from)
--- NOTE | 2018-10-21 17:09 | NUR ---
Nutrition Screen Note RD Recommendation for Physician: - ADAT to Full Liquids per MD discretion - Recommend Ensure Max Protein BID when diet advanced - MVI/minerals per MD - Post gastric sleeve diet education provided Plan of Care: RD following, ONS, diet education, monitoring for tolerance and adequacy Nutrition reason for involvement: MD Consult- diet education Primary Diagnose(s): lap sleeve gastrectomy PMH: HTN, GERD, HLD, hypothyroidism Ht: 63 in Wt: 266 lb BMI: 47.1 kg/m2 IBW: [address] Assessment: (10/21) 68 YOF admitted for lap sleeve gastrectomy procedure, pt seen today per MD consult for post gastric sleeve diet education. Pt educated on full liquid diet and progression to pureed diet as well as supplement recommendations upon discharge. Pt provided with diet education materials on full liquids, pureed diet, supplements, MVI, and recommended intake. Pt states she was following the recommendations prior to the procedure and has no questions at this time. Pt denies any GI distress or poor appetite PER DIEM PHYSICAL THERAPIST ASSISTANT. Chart reviewed. Labs and meds noted. Will monitor and continue to follow. Current Diet: Clear Liquids Malnutrition Evaluation (10/21/18) The patient does not meet criteria for a specified degree of malnutrition at this time. Will re-evaluate at follow-up as appropriate. Diet Education Needs Assessment: Diet education indicated, pt receptive. Learner(s): pt Barriers: none Cultural/Language Modifications: none Readiness: ready Method: handouts, discussion Topics: full liquid diet, pureed diet, plan of progression of diet, foods to eat, foods to avoid, supplements recommended upon discharge Understanding/Compliance: good Nutrition Care Level: Low Signed: Mona Thibodeaux RD, LD, [facility]
--- NOTE | 2018-10-21 17:30 | NUR ---
Urine specimen collected and sent to lab
[2018-10-21] MEDS: ONDANSETRON HCL INJ 2MG/ML 2ML 2 MG/ML VIAL IV PRN (17:31)
[2018-10-21 18:28] LABS: CLARITY,URINE CLEAR (CLEAR); COLOR,URINE STRAW (YELLOW); LEUKOCYTE ESTERASE ,URINE NEGATIVE (NEGATIVE); NITRITE,URINE NEGATIVE (NEGATIVE)
[2018-10-21 18:29] LABS: BILIRUBIN,URINE NEGATIVE (NEGATIVE); KETONES,URINE 2+ (NEGATIVE); PROTEIN,URINE DIPSTICK TRACE (NEGATIVE); URINE UROBILINOGEN 1 mg/dL (0.2 - 1)
--- NOTE | 2018-10-21 19:54 | NUR ---
SPOKE TO DR. ZAMAN AT THIS TIME REGARDING PT BP READING 198/84. NEW ORDER RCV TO CONTINUE HOME MEDS AND LABS IN THE MORNING.
[2018-10-21] MEDS ORDERED: [UNRECOGNIZED DRUG - OTHER] PO (19:57)
[2018-10-21] MEDS ORDERED: ACETAMINOPHEN 325 MG TAB PO PRN (20:15)
--- NOTE | 2018-10-21 20:21 | NUR ---
ASSISTED PT FROM BED TO RESTROOM AND BACK TO BED X2.
[2018-10-21] MEDS: AMLODIPINE BESYLATE 10 MG TAB PO SCH (20:38)
[2018-10-21] MEDS: BENAZEPRIL HCL 10 MG TAB PO SCH (20:38)
--- NOTE | 2018-10-21 22:03 | NUR ---
BP NOW READING 141/63
--- NOTE | 2018-10-21 22:30 | NUR ---
ASSISTED PT IN AMBULATING THE HALLWAY AND BACK TO BED
--- NOTE | 2018-10-22 00:04 | NUR ---
ASSISTED PT AGAIN AT THIS TIME IN AMBULATING TO HALLWAY AND BACK TO BED. PT TOLERATED WELL
[2018-10-22 00:31] VITALS: BP 144/62
[2018-10-22] MEDS: SODIUM CHLORIDE 0.9% 1000ML 1,000 ML IV SCH (01:56)
[2018-10-22 04:00] VITALS: BP 159/65
[2018-10-22] MEDS: ONDANSETRON HCL INJ 2MG/ML 2ML 2 MG/ML VIAL IV PRN (05:27)
[2018-10-22] MEDS: MORPHINE SULFATE INJ 4 MG/ML INJ 1ML IV PRN (05:27)
--- NOTE | 2018-10-22 05:50 | NUR ---
16fr guillermo cath removed per orders, tip intact. patient tolerated well. urine hat in restroom. educated patient to call for assistance, verbalized understanding. dtv.
[2018-10-22] MEDS: LEVOTHYROXINE SODIUM 25 MCG TABLET PO SCH (05:53)
[2018-10-22 05:55] LABS: BASOPHILS % 0.3 % (0.0-1.0); EOSINOPHILS % 0.1 % (0.0-6.0); HEMATOCRIT 39.5 % (34.2-44.1); HEMOGLOBIN 13.3 g/dL (12.0-16.0); LYMPHOCYTES # (AUTO) 1.1 (1.0-3.2); LYMPHOCYTES % 8.9 % (18.0-39.1); MEAN CORPUSCULAR HEMOGLOBIN 31.7 pg (28-32); MEAN CORPUSCULAR HGB CONC 33.7 g/dL (31-35); MEAN CORPUSCULAR VOLUME 94.3 fL (81-99); MONOCYTES # (AUTO) 1.2 (0.2-0.8); MONOCYTES % 9.2 % (4.4-11.3); NEUTROPHILS # (AUTO) 10.1 (2.1-6.9); NEUTROPHILS % 80.7 % (38.7-80.0); PLATELET COUNT 269 x10e3/uL (140-360); RED BLOOD COUNT 4.19 x10e6/uL (3.6-5.1); RED CELL DISTRIBUTION WIDTH 13.3 % (11.7-14.4)
[2018-10-22 06:15] LABS: ANION GAP 16.3 mmol/L (8-16); BLOOD UREA NITROGEN 7 mg/dL (7-26); BUN/CREATININE RATIO 11 (6-25); CALCIUM 8.9 mg/dL (8.4-10.2); CARBON DIOXIDE 24 mmol/L (22-29); CHLORIDE 102 mmol/L (98-107); CREATININE, SERUM 0.61 mg/dL (0.57-1.11); EST GLOMERULAR FILTRATION RATE > 60 ML/MIN (60-); GLUCOSE 124 mg/dL (74-118); POTASSIUM 3.3 mmol/L (3.5-5.1); SODIUM 139 mmol/L (136-145)
[2018-10-22 08:04] VITALS: BP 169/70
[2018-10-22] MEDS: CINNAMON 1000 MG PO SCH (09:00)
[2018-10-22] MEDS ORDERED: CHOLECALCIFEROL 1,000 UNIT TAB PO SCH (09:00)
[2018-10-22 09:25] VITALS: BP 169/70
[2018-10-22] MEDS: ENOXAPARIN SOD INJ 40 MG/0.4 ML SYR SC SCH (09:25)
[2018-10-22] MEDS: AMLODIPINE BESYLATE 10 MG TAB PO SCH (09:25)
[2018-10-22] MEDS: BENAZEPRIL HCL 10 MG TAB PO SCH (09:25)
--- NOTE | 2018-10-22 09:25 | NUR ---
assessment complete no distress noted, updated on poc voiced understanding, co headache / medicated with prn meds, r hand 20g no ss of infiltration noted, no other co voiced call light in reach will continue to monitor
[2018-10-22] MEDS ORDERED: POTASSIUM CHLORIDE 10MEQ EA PO NR (09:30)
--- NOTE | 2018-10-22 09:37 | Discharge Summary ---
ADMIT DIAGNOSES 1. Extreme obesity. Body mass index 47 complicating underlying hypertension and gastroesophageal reflux disease. 2. Ventral hernia. 3. Hypertensive heart disease. 4. Gastroesophageal reflux disease. DISCHARGE DIAGNOSES 1. Status post laparoscopic sleeve gastrectomy. 2. Ventral hernia (endoscopically proven). 3. Status post esophagogastroduodenoscopy. 4. Extreme obesity. Body mass index 47 complicating underlying hypertension and gastroesophageal reflux disease. 5. Hypertensive heart disease. 6. Gastroesophageal reflux disease. 7. Urinary retention requiring Amaral catheter placement. HOSPITAL COURSE: This is a 68-year-old white woman who was admitted to [facility] with the diagnosis of extreme obesity, BMI 47 complicating underlying hypertension and GERD. She also has hypertension and GERD as previously stated. During this hospitalization, the patient underwent successful laparoscopic sleeve gastrectomy, as well as EGD. EGD revealed a large ventral hernia. The plan was to repair the ventral hernia in the near future. The patient tolerated surgery well. Her only issue was urinary retention, which required Amaral catheter placement. Urinalysis was performed and no evidence of infection was appreciated. Her hospitalization was unremarkable. Condition on discharge was stable. On discharge, she was tolerating a full liquid diet. DISCHARGE MEDICATIONS 1. Tramadol 50 mg every 4 hours p.r.n. pain, 25 prescribed, no refills. 2. Amlodipine with benazepril 10 mg per 20 mg once daily. 3. Atorvastatin 10 mg at bedtime. 4. Vitamin D3 2000 units daily. 5. [place]-3 fish oil 2000 mg daily. 6. Levothyroxine 25 mcg daily. 7. Acetaminophen 500 mg once daily as needed for arthritic pain or fever. 8. Cinnamon supplement 1000 mg daily. 9. Tylenol Cold and Flu 2 pills every night as needed for cough and congestion. 10. Acetaminophen with diphenhydramine 3pills every night as needed for insomnia. FOLLOWUP INSTRUCTIONS: The patient was instructed to follow up with Dr. Doherty in 1 week and with her primary care physician, namely myself, Dr. Adiel Zaman, in 2 weeks. Also, the patient was told that if she could not urinate on the day of discharge then she would go home with an indwelling Amaral catheter with the arrangement of home health nursing. The patient was reassured that home health nursing within a week would remove the Amaral catheter at her home. ADIEL ZAMAN MD Job#: [id number] RI cc:ADRY DOHERTY MD
[2018-10-22 12:05] VITALS: BP 160/75
--- NOTE | 2018-10-22 13:27 | NUR ---
Spoke to pt at bedside. She stated Dr. Patel told her he plans to discharge her today. Will follow up with Dr. Doherty in [address] Patel in 2 weeks. She also stated that Dr. Patel stated if pt unable to urinate by 2pm today, she will need to go home with a Amaral catheter and home health for Amaral cath care. Stated Dr. Patel had mentioned [facility] and she would like to go with them if needed. Choice letter signed and placed in chart. Copy to pt. IMM letter delivered and explained to pt. She verbalized understanding. Signed copy placed in chart. Copy to pt. Gave pt business card for any questions/concerns.
--- NOTE | 2018-10-22 14:40 | NUR ---
16F ZAMORA PLACED WITHOUT DIFFICULTY, PT TOLERATED WELL, DR ZAMAN NOTIFIED RE: PT UNABLE TO URINATE, ZAMORA PLACED PER ORDERED, [facility] TO FOLLOW PATIENT AT HOME FOR ZAMORA CATHETER CARE AND MANAGEMENT
--- NOTE | 2018-10-22 15:37 | NUR ---
Received order for home health for [facility]. Referral was faxed to [facility]. CM called and spoke to Lenin with intake. She said they will process referral today [place]. [id number] [place] [address] P [phone] F [phone]
[2018-10-22 16:52] VITALS: BP 154/67
== END 2018-10-22 17:38 | disposition home health service (06) | DRG 621 ==
LOC: OR 08:43 → IMCU 18:30 → MED/SURG 10-21 12:25
PROVIDERS: ADMIT Internal Medicine; ATTEND Internal Medicine
PROC: 0DJ08ZZ Inspection of Upper Intestinal Tract, Via Natural or Artificial Opening Endoscopic (ICD-10-PCS; 2018-10-20)
PROC: 0DB64Z3 Excision of Stomach, Percutaneous Endoscopic Approach, Vertical (ICD-10-PCS; principal; 2018-10-20 10:00)
DX: E66.01 Morbid (severe) obesity due to excess calories (principal); Z68.42 Body mass index [BMI] 45.0-49.9, adult; I10 Essential (primary) hypertension; K21.9 Gastro-esophageal reflux disease without esophagitis; K43.9 Ventral hernia without obstruction or gangrene; I11.9 Hypertensive heart disease without heart failure; R33.9 Retention of urine, unspecified; G47.00 Insomnia, unspecified; E78.5 Hyperlipidemia, unspecified; Z28.21 Immunization not carried out because of patient refusal; Z88.5 Allergy status to narcotic agent; Z88.0 Allergy status to penicillin
CPT/HCPCS: 36415; 71046; 80048; 80053; 81001; 83735; 84100; 85025; 87086; 93005; J1100; J1650; J1956; J2001; J2250; J2270; J2405; J7030

== ENCOUNTER → 2022-10-02 | Day surgery (SDC) | payer BC, OTHER ==
[2022-09-26 13:31] LABS: BASOPHILS # (AUTO) 0.1 (0.0-0.1); EOSINOPHILS # (AUTO) 0.2 (0.0-0.4); EOSINOPHILS % 4.3 % (0.0-6.0); HEMOGLOBIN 12.7 g/dL (12.0-16.0); LYMPHOCYTES # (AUTO) 1.5 (1.0-3.2); LYMPHOCYTES % 29.8 % (18.0-39.1); MEAN CORPUSCULAR HEMOGLOBIN 32.2 pg (28-32); MEAN CORPUSCULAR VOLUME 103.8 fL (81-99); MONOCYTES # (AUTO) 0.6 (0.2-0.8); MONOCYTES % 11.3 % (4.4-11.3); NEUTROPHILS # (AUTO) 2.6 (2.1-6.9); NEUTROPHILS % 53.4 % (38.7-80.0); PLATELET COUNT 280 x10e3/uL (140-360); RED BLOOD COUNT 3.95 x10e6/uL (3.6-5.1); RED CELL DISTRIBUTION WIDTH 11.9 % (11.7-14.4)
[~2022-10-02] MED LIST changes: +ACETAMINOPHEN 1000 MG/100 ML 100 ML IV ONE; -BUPIVACAINE 0.25% 30ML SDV INJ ONE; +DEXAMETHASONE SOD PHOS INJ 4 MG/ML SDV ONE; +DEXMEDETOMIDINE HCL 2 ML ONE; +EPINEPHRINE HCL 1:1000 1ML 1 MG/ML AMP ONE; +FENTANYL CITRATE/PF 100MCG/2 ML INJ ONE; -HYDROGEN PEROXIDE 120 ML BTL ONE; -LEVOTHYROXINE25 MCG; +LEVOTHYROXINE25 MCG PO; +LIDOCAINE HCL 2% LOCAL INJ 5 ML SDV VIAL INJ ONE; +MAG-TAB SR84 MG PO; +MAGNESIUM500 MG; +ONDANSETRON HCL INJ 2MG/ML 2ML 2 MG/ML VIAL ONE; +POTASSIUM20 MEQ/100 IV; +POVIDONE IODINE 0.05% 0.05 % ML PO ONE; +PROPOFOL IV EMULSION 10 MG/ML 20 ML VIAL ONE; +ROPIVACAINE 0.5% 5 MG/ML 30 ML SDV ONE; +SEVOFLURANE INHAL SOLN 250 ML PEN BTL ONE; +[UNRECOGNIZED DRUG - OTHER] PO
[2022-10-02 13:15] VITALS: BP 146/70
== END | disposition home or self-care (01) ==
LOC: OR 08:30
PROVIDERS: ATTEND Specialist
DX: S52.571A Other intraarticular fracture of lower end of right radius, initial encounter for closed fracture (principal); I10 Essential (primary) hypertension; E78.5 Hyperlipidemia, unspecified; E03.9 Hypothyroidism, unspecified; K44.9 Diaphragmatic hernia without obstruction or gangrene; R42 Dizziness and giddiness; W01.198A Fall on same level from slipping, tripping and stumbling with subsequent striking against other object, initial encounter; Y92.096 Garden or yard of other non-institutional residence as the place of occurrence of the external cause; Z88.6 Allergy status to analgesic agent; Z88.0 Allergy status to penicillin; Z79.899 Other long term (current) drug therapy; Z68.42 Body mass index [BMI] 45.0-49.9, adult
CPT/HCPCS: 25608; 36415; 71046; 76000; 85025; 93005; C1713 ×5; J0131; J0171; J0690; J1100; J2001; J2405; J2704; J2795; J3010

== ENCOUNTER 2024-06-08 11:00 | Outpatient (RCR) | payer BC, MEDICARE ==
[~2024-06-08 11:00] MED LIST changes: -ACETAMINOPHEN 1000 MG/100 ML 100 ML IV ONE; -DEXAMETHASONE SOD PHOS INJ 4 MG/ML SDV ONE; -DEXMEDETOMIDINE HCL 2 ML ONE; -EPINEPHRINE HCL 1:1000 1ML 1 MG/ML AMP ONE; -FENTANYL CITRATE/PF 100MCG/2 ML INJ ONE; -LIDOCAINE HCL 2% LOCAL INJ 5 ML SDV VIAL INJ ONE; -ONDANSETRON HCL INJ 2MG/ML 2ML 2 MG/ML VIAL ONE; -POVIDONE IODINE 0.05% 0.05 % ML PO ONE; -PROPOFOL IV EMULSION 10 MG/ML 20 ML VIAL ONE; -ROPIVACAINE 0.5% 5 MG/ML 30 ML SDV ONE; -SEVOFLURANE INHAL SOLN 250 ML PEN BTL ONE
== END 2024-06-15 ==
LOC: PT 11:00
PROVIDERS: ATTEND Physician Assistant
DX: M25.562 Pain in left knee (principal); M25.561 Pain in right knee; M17.12 Unilateral primary osteoarthritis, left knee; R26.9 Unspecified abnormalities of gait and mobility; R26.2 Difficulty in walking, not elsewhere classified